=== PATIENT | female | born 1935 | race Caucasian/White ===

== ENCOUNTER 2017-03-16 07:03 | Day surgery (SDC) | payer MEDICARE, MEDICAID ==
[~2017-03-16 07:03] MED LIST: Lactated Ringers 1,000 ML IV SCH; Lidocaine 1%/Sod Bicarbonate in NS 8.4% 1 ML Syringe PRN; Sodium Chloride 0.9% 10 ML Syringe FLUSH PRN
[2017-03-16] MEDS ORDERED: fentaNYL 100 MCG/2 ML SDV ONE (07:12)
[2017-03-16] MEDS ORDERED: Propofol 200 MG/20 ML SDV ONE (07:12)
[2017-03-16] MEDS ORDERED: Lidocaine 1% 4 ML ONE (07:12)
--- NOTE | 2017-03-16 07:59 | PCM.PREANE ---
Preanesthetic Assessment - Anesthesia/Transfusion/Family Hx Anesthesia History: Prior Anesthesia Without Reaction Family History of Anesthesia Reaction: No - Review of Systems General: No Symptoms Pulmonary: No Symptoms Cardiovascular: No Symptoms Gastrointestinal: No Symptoms Neurological: No Symptoms Other: Reports: None - Physical Assessment NPO Status Date: 03/15/17 NPO Status Time: 21:00 O2 Sat by Pulse Oximetry: 95 Respiratory Rate: 16 Vital Signs: Last Vital Signs Temp 37.4 C 03/16/17 07:10 Pulse 52 L 03/16/17 07:10 Resp 16 03/16/17 07:10 BP 128/63 03/16/17 07:10 Pulse Ox 95 03/16/17 07:10 Height: 1.5 m Weight: 102.965 kg ASA Class: 3 Mental Status: Alert & Oriented x3 Dentition: Reports: Normal Dentition Thyro-Mental Finger Breadths: 2 Mouth Opening Finger Breadths: 2 ROM/Head Extension: Full Lungs: Clear to Auscultation, Normal Respiratory Effort Cardiovascular: Regular Rate, Regular Rhythm Other: Able to climb a flight of stairs. CPAP at night for sleep apnea. - Imaging/EKG Impressions: SR with RBBB 02/2016 - Allergies Allergies/Adverse Reactions: Allergies Allergy/AdvReac Type Severity Reaction Status Date / Time bacitracin Allergy Itching Verified 03/30/16 15:40 [From Triple Antibiotic] bacitracin zinc Allergy Itching Verified 03/30/16 15:40 [From Triple Antibiotic] neomycin sulfate Allergy Itching Verified 03/30/16 15:40 [From Triple Antibiotic] polymyxin B Allergy Itching Verified 03/30/16 15:40 [From Triple Antibiotic] polymyxin B sulfate Allergy Itching Verified 03/30/16 15:40 [From Triple Antibiotic] cats Allergy Respiratory Uncoded 09/18/15 14:44 Distress lanolin Allergy Itching Uncoded 09/18/15 14:44 metals Allergy Rash Uncoded 03/30/16 15:40 - Acknowledgements Anesthesia Type Planned: MAC Pt an Appropriate Candidate for the Planned Anesthesia: Yes Alternatives and Risks of Anesthesia Discussed w Pt/Guardian: Yes Pt/Guardian Understands and Agrees with Anesthesia Plan: Yes PreAnesthesia Questionnaire HEENT History: Reports: Cataract, Impaired Vision Other HEENT History: wears glasses Cardiovascular History: Reports: Heart Failure, Hypertension Respiratory History: Reports: Asthma, Sleep Apnea Gastrointestinal History: Reports: GERD, Other (See Below) Other Gastrointestinal History: lara's esophogus, umbilical hernia Genitourinary History: Reports: None 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: 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: None Musculoskeletal History: Reports: Other (See Below) Other Musculoskeletal History: crushed R ankle with hardware, broken L arm, restless leg syndrome Neurological History: Reports: Other (See Below) Other Neuro History: restless leg syndrome Psychiatric History: Reports: None Endocrine/Metabolic History: Reports: None Hematologic History: Reports: None Immunologic History: Reports: None Oncologic (Cancer) History: Reports: Basal Cell Carcinoma, Breast, Uterine Dermatologic History: Reports: Other (See Below) Other Dermatologic History: L leg plebitis, L ankle ulcer, skin lesion, leg phlebitis - Past Surgical History HEENT Surgical History: Reports: Cataract Surgery, Tonsillectomy GI Surgical History: Reports: Appendectomy, Cholecystectomy, Colonoscopy, EGD Female Surgical History: Reports: Hysterectomy Male Surgical History: Reports: None Endocrine Surgical History: Reports: None Musculoskeletal Surgical History: Reports: None Oncologic Surgical History: Reports: Mastectomy - SUBSTANCE USE Smoking Status *Q: Never Smoker Second Hand Smoke Exposure: No Days Per Week of Alcohol Use: 0 Number of Drinks Per Day: 0 Total Drinks Per Week: 0 Recreational Drug Use History: No - HOME MEDS Home Medications: Home Meds Albuterol Sulfate [Proair Hfa] 2 puff INH Q4HR PRN 09/18/15 [History] Antiox#10/Om3/DHA/EPA/Lut/Zeax [I-Caps with Lutein-[place] 3 SFG] 1 cap PO BID [History] Aspirin [Adult Low Dose Aspirin EC] 81 mg PO DAILY 09/18/15 [History] Calcium Carbonate/Vitamin D3 [Calcium 600 + Vit D 200] 1 tab PO DAILY 09/18/15 [ History] Estradiol [Estrace 0.01% Vaginal Crm] 1 gram VAG WEEKLY 09/18/15 [History] Fluticasone/Salmeterol [Advair Hfa 230-21 Mcg Inhaler] 2 puff INH BID 09/18/15 [ History] Furosemide [Lasix] 40 mg PO BID 09/18/15 [History] Lisinopril 10 mg PO DAILY 09/18/15 [History] Magnesium Hydroxide [Milk of Magnesia] 30 ml PO ASDIRECTED 09/18/15 [History] Potassium Chloride 10 meq PO DAILY 09/18/15 [History] Propylene Glycol/Peg 400 [Systane 0.3-0.4% Eye Drops] 1 drop EYEBOTH BID [History] Ranitidine HCl 150 tab PO BID 09/18/15 [History] Fluticasone Propionate [Flonase Allergy Relief] 1 spray NS BID PRN 03/30/16 [ History] Teriparatide [Forteo] 20 mcg SQ DAILY 03/30/16 [History] Cholecalciferol (Vitamin D3) [Vitamin D3] 5,000 unit PO DAILY 03/15/17 [History] - CURRENT (IN HOUSE) MEDS Current Meds: Current Medications Lactated Ringer's (Ringers, Lactated) 1,000 mls @ 125 mls/hr IV ASDIRECTED HUGO Stop: 03/16/17 23:00 Lidocaine/Sodium Bicarbonate (Buffered Lidocaine 1% In Ns 8.4%) 0.25 ml .XX ONETIME PRN PRN Reason: Prior to IV Start Stop: 03/16/17 18:00 Sodium Chloride (Saline Flush) 10 ml FLUSH ASDIRECTED PRN PRN Reason: Keep Vein Open Stop: 03/16/17 18:00 Discontinued Medications Fentanyl (Sublimaze) Confirm Administered Dose 100 mcg .ROUTE .STK-MED ONE Stop: 03/16/17 07:13 Lidocaine HCl (Xylocaine-Mpf 1%) Confirm Administered Dose 4 mls @ as directed .ROUTE .STK-MED ONE Stop: 03/16/17 07:13 Propofol (Diprivan 20 Ml) Confirm Administered Dose 200 mg .ROUTE .STK-MED ONE Stop: 03/16/17 07:13
--- NOTE | 2017-03-16 08:57 | PCM.OPNOTE ---
- General Post-Op/Procedure Note Date of Surgery/Procedure: 03/16/17 Operative Procedure(s): EGD with bx Pre Op Diagnosis: barretts esophagus Post-Op Diagnosis: Same Anesthesia Technique: MAC Primary Surgeon: Eric Cotto EBL in mLs: 0 Complications: None Condition: Good
[2017-03-16 09:25] VITALS: BP 116/60
--- NOTE | 2017-03-16 12:00 | OR ---
DATE OF OPERATION: 03/16/2017 SURGEON: Eric Cotto MD PREOPERATIVE DIAGNOSIS: History of Marcial's esophagus. POSTOPERATIVE DIAGNOSIS: History of Marcial's esophagus. OPERATION PERFORMED: Esophagogastroduodenoscopy with biopsy. ANESTHESIA: Done under IV sedation. FINDINGS: Large hiatal hernia with half the stomach above the diaphragm. GE junction was located at 30 cm, and there was mild irregularity suggesting perhaps no Marcial's or very short Marcial's esophagus. The duodenal bulb was unremarkable. Because of the coiling, the scope was unable to get beyond the duodenal bulb, into the second portion. Pyloric channel was unremarkable. Antrum, body, cardia, and fundus of the stomach were without any acute disease other than the large hiatal hernia. DESCRIPTION OF PROCEDURE: The patient was taken to the endoscopy room, connected to monitoring equipment, given IV sedation, and placed in left lateral position. Bite block was inserted. Video Olympus gastroscope was placed in the posterior oropharynx, threaded past the cricopharyngeus, down the esophagus, and into the stomach. The stomach was insufflated, and the scope passed through the pylorus to the duodenal bulb. Because of the coiling, could not advance into the second portion of the duodenum. Duodenal bulb was unremarkable as well as the pylorus. Antrum, body, and cardia of the stomach and fundus did not show any acute pathology. Biopsies of the fundus were done. The J-maneuver did show an incompetent hiatus with a large portion of the stomach, about half, above the diaphragm, and one could see the GE junction from this angle. The scope was withdrawn into the hiatal hernia pouch, which was viewed and was unremarkable. The GE junction was located at 30 cm, mild irregularity, and this area was biopsied. If there was any Marcial's, it would only be about 1 cm. The rest of the esophagus was viewed as the scope was withdrawn and was unremarkable. The patient tolerated the procedure and was sent to recovery room in a stable condition. Specimen sent to pathology in a labeled container. The patient will be followed up in clinic. ESTIMATED BLOOD LOSS: MMODAL /[id number]
== END 2017-03-16 09:31 | disposition home or self-care (01) ==
LOC: JD.SDS 07:03
PROVIDERS: ATTEND Surgery
DX: K29.50 Unspecified chronic gastritis without bleeding (principal); Z87.19 Personal history of other diseases of the digestive system; I11.0 Hypertensive heart disease with heart failure; I50.9 Heart failure, unspecified; K21.9 Gastro-esophageal reflux disease without esophagitis; J45.909 Unspecified asthma, uncomplicated; Z90.710 Acquired absence of both cervix and uterus; Z90.49 Acquired absence of other specified parts of digestive tract; Z98.890 Other specified postprocedural states; Z79.899 Other long term (current) drug therapy
CPT/HCPCS: 43239; J7120; 00740; 88305; J2704; J3010

== ENCOUNTER 2017-09-28 06:18 | Day surgery (SDC) | payer MEDICARE, MEDICAID ==
[~2017-09-28 06:18] MED LIST changes: +Lidocaine 1%/Sod Bicarbonate in NS 8.4% 1 ML Syringe IDERM PRN; -Lidocaine 1%/Sod Bicarbonate in NS 8.4% 1 ML Syringe PRN
[2017-09-28] MEDS ORDERED: fentaNYL 100 MCG/2 ML SDV ONE (06:41)
[2017-09-28] MEDS ORDERED: Propofol 200 MG/20 ML SDV ONE (06:41)
[2017-09-28] MEDS ORDERED: Lidocaine 1% 4 ML ONE (06:42)
[2017-09-28] MEDS ORDERED: Ondansetron 4 MG/2 ML SDV ONE (06:44)
--- NOTE | 2017-09-28 06:46 | PCM.PREANE ---
Preanesthetic Assessment - Procedure Proposed Procedure: A1 johanna release of right middle and little finger - Anesthesia/Transfusion/Family Hx Anesthesia History: Prior Anesthesia Without Reaction Family History of Anesthesia Reaction: No Transfusion History: Prior Transfusion Without Reaction - Review of Systems General: No Symptoms Pulmonary: Other (AKOSUA with CPAP, asthma- used inhalers this am) Cardiovascular: Other (HTN, CHF) Gastrointestinal: Other (GERD, hiatal hernia ) Neurological: No Symptoms Other: Reports: Easy Bruising - Physical Assessment NPO Status Date: 09/27/17 NPO Status Time: 21:00 Pulse: 54 O2 Sat by Pulse Oximetry: 94 Respiratory Rate: 16 Blood Pressure: 119/54 Temperature: 36.6 C Height: 1.42 m Weight: 100.698 kg ASA Class: 3 Mental Status: Alert & Oriented x3 Dentition: Reports: Normal Dentition Thyro-Mental Finger Breadths: 3 Mouth Opening Finger Breadths: 3 ROM/Head Extension: Limited/Partial Lungs: Clear to Auscultation, Normal Respiratory Effort Cardiovascular: Regular Rate, Regular Rhythm - Lab Values: Laboratory Last Values MRSA (PCR) Negative 09/20/17 15:05 - Allergies Allergies/Adverse Reactions: Allergies Allergy/AdvReac Type Severity Reaction Status Date / Time bacitracin Allergy Itching Verified 09/27/17 14:58 [From Triple Antibiotic] bacitracin zinc Allergy Itching Verified 09/27/17 14:58 [From Triple Antibiotic] cat dander Allergy Respiratory Verified 09/27/17 14:58 Distress lanolin Allergy Itching Verified 09/27/17 14:58 neomycin sulfate Allergy Itching Verified 09/27/17 14:58 [From Triple Antibiotic] polymyxin B Allergy Itching Verified 09/27/17 14:58 [From Triple Antibiotic] polymyxin B sulfate Allergy Itching Verified 09/27/17 14:58 [From Triple Antibiotic] metals Allergy Rash Uncoded 09/27/17 14:58 - Blood Blood Available: No Product(s) Available: None - Anesthesia Plan Pre-Op Medication Ordered: None - Acknowledgements Anesthesia Type Planned: MAC Pt an Appropriate Candidate for the Planned Anesthesia: Yes Alternatives and Risks of Anesthesia Discussed w Pt/Guardian: Yes Pt/Guardian Understands and Agrees with Anesthesia Plan: Yes PreAnesthesia Questionnaire HEENT History: Reports: Cataract, Impaired Vision Other HEENT History: wears glasses Cardiovascular History: Reports: Heart Failure, Hypertension Respiratory History: Reports: Asthma, Sleep Apnea Gastrointestinal History: Reports: GERD, Other (See Below) Other Gastrointestinal History: lara's esophogus, umbilical hernia, esophagitis Genitourinary History: Reports: None 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: 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: None Musculoskeletal History: Reports: Other (See Below) Other Musculoskeletal History: crushed R ankle with hardware, broken L arm, restless leg syndrome Neurological History: Reports: Other (See Below) Other Neuro History: restless leg syndrome Psychiatric History: Reports: None Endocrine/Metabolic History: Reports: None Hematologic History: Reports: None Immunologic History: Reports: None Oncologic (Cancer) History: Reports: Basal Cell Carcinoma, Breast, Uterine Dermatologic History: Reports: Other (See Below) Other Dermatologic History: L leg plebitis, L ankle ulcer, skin lesion, leg phlebitis - Past Surgical History HEENT Surgical History: Reports: Cataract Surgery, Tonsillectomy Cardiovascular Surgical History: Reports: None Respiratory Surgical History: Reports: None GI Surgical History: Reports: Appendectomy, Cholecystectomy, Colonoscopy, EGD, Hernia Repair/Other Female Surgical History: Reports: Hysterectomy Male Surgical History: Reports: None Endocrine Surgical History: Reports: None Musculoskeletal Surgical History: Reports: None Oncologic Surgical History: Reports: Mastectomy - SUBSTANCE USE Smoking Status *Q: Never Smoker Second Hand Smoke Exposure: No Days Per Week of Alcohol Use: 0 Number of Drinks Per Day: 0 Total Drinks Per Week: 0 Recreational Drug Use History: No - HOME MEDS Home Medications: Home Meds Albuterol Sulfate [Proair Hfa] 2 puff INH Q4HR PRN 09/18/15 [History] Antiox#10/Om3/DHA/EPA/Lut/Zeax [I-Caps with Lutein-[place] 3 SFG] 2 cap PO BID [History] Aspirin [Adult Low Dose Aspirin EC] 81 mg PO DAILY 09/18/15 [History] Calcium Carbonate/Vitamin D3 [Calcium 600 + Vit D 200] 1 tab PO DAILY 09/18/15 [ History] Estradiol [Estrace 0.01% Vaginal Crm] 1 gram VAG WEEKLY 09/18/15 [History] Fluticasone/Salmeterol [Advair Hfa 230-21 Mcg Inhaler] 2 puff INH BID PRN [History] Furosemide [Lasix] 40 mg PO BID 09/18/15 [History] Lisinopril 10 mg PO DAILY 09/18/15 [History] Magnesium Hydroxide [Milk of Magnesia] 30 ml PO ASDIRECTED 09/18/15 [History] Potassium Chloride 10 meq PO DAILY 09/18/15 [History] Propylene Glycol/Peg 400 [Systane 0.3-0.4% Eye Drops] 1 drop EYEBOTH BID [History] Ranitidine HCl 150 tab PO BID 09/18/15 [History] Fluticasone Propionate [Flonase Allergy Relief] 1 spray NS BID PRN 03/30/16 [ History] Teriparatide [Forteo] 20 mcg SQ DAILY 03/30/16 [History] Cholecalciferol (Vitamin D3) [Vitamin D3] 5,000 unit PO DAILY 03/15/17 [History] - CURRENT (IN HOUSE) MEDS Current Meds: Current Medications Lactated Ringer's (Ringers, Lactated) 1,000 mls @ 125 mls/hr IV ASDIRECTED HUGO Stop: 09/28/17 23:00 Lidocaine/Sodium Bicarbonate (Buffered Lidocaine 1% In Ns 8.4%) 0.25 ml IDERM ONETIME PRN PRN Reason: Prior to IV Start Stop: 09/28/17 18:00 Sodium Chloride (Saline Flush) 10 ml FLUSH ASDIRECTED PRN PRN Reason: Keep Vein Open Stop: 09/28/17 18:00 Discontinued Medications Fentanyl (Sublimaze) Confirm Administered Dose 100 mcg .ROUTE .STK-MED ONE Stop: 09/28/17 06:42 Lidocaine HCl (Xylocaine-Mpf 1%) Confirm Administered Dose 4 mls @ as directed .ROUTE .STK-MED ONE Stop: 09/28/17 06:43 Ondansetron HCl (Zofran) Confirm Administered Dose 4 mg .ROUTE .STK-MED ONE Stop: 09/28/17 06:45 Propofol (Diprivan 20 Ml) Confirm Administered Dose 200 mg .ROUTE .STK-MED ONE Stop: 09/28/17 06:42
[2017-09-28] MEDS ORDERED: Lidocaine 1% 30 ML SDV ONE (06:56)
[2017-09-28] MEDS ORDERED: Bupivacaine 0.25% 10 ML SDV ONE (06:56)
[2017-09-28] MEDS ORDERED: ceFAZolin 1 GM Vial ONE (06:59)
[2017-09-28] MEDS ORDERED: Dexamethasone 4 MG/ML 5 ML MDV ONE (07:24)
--- NOTE | 2017-09-28 07:54 | PCM48HPAN ---
Post Anesthesia Note - EVALUATION WITHIN 48HRS OF ANESTHETIC Vital Signs in Normal Range: Yes Patient Participated in Evaluation: Yes Respiratory Function Stable: Yes Airway Patent: Yes Cardiovascular Function Stable: Yes Hydration Status Stable: Yes Pain Control Satisfactory: Yes Nausea and Vomiting Control Satisfactory: Yes Mental Status Recovered: Yes Pulse Rate: 50 SaO2: 96 Resp Rate: 16 Temperature: 36.4 C Blood Pressure: 95/44
[2017-09-28 08:58] VITALS: BP 96/51
--- NOTE | 2017-10-08 22:23 | PCM.OPNOTE ---
- General Post-Op/Procedure Note Date of Surgery/Procedure: 09/28/17 Operative Procedure(s): right middle, ring and small finger a1 johanna releases Pre Op Diagnosis: right middle, ring and small finger stenosing tenosynovitis Post-Op Diagnosis: Same Anesthesia Technique: Local, MAC Primary Surgeon: Royal Torres Anesthesia Provider: Marciano Fink Supervisor Gear Repair: Magaly Gonzalez EBL in mLs: 5 Complications: None Condition: Good
--- NOTE | 2017-10-08 22:55 | OR ---
DATE OF OPERATION: 09/28/2017 SURGEON: Royal Torres MD OPERATION PERFORMED: Right middle ring and small finger A1 johanna releases. PREOPERATIVE DIAGNOSIS: Right middle ring and small finger stenosing tenosynovitis. POSTOPERATIVE DIAGNOSIS: Right middle ring and small finger stenosing tenosynovitis. ANESTHESIA: Local MAC. ANESTHESIA PROVIDER: Marciano Fink. COMPUTER TYPESETTER: Magaly Gonzalez PA-C. ESTIMATED BLOOD LOSS: Less than 5 mL. COMPLICATIONS: None. CONDITION: Stable. DESCRIPTION OF PROCEDURE: The patient was identified in the preop holding area, where proper site was marked and identified by surgeon. The patient was taken back to the operating theater, where after adequate anesthesia, the patient's right upper extremity was sterilely prepped and draped in the usual sterile fashion. OR time-out was performed. The patient received 2 g IV Ancef. At this time, right upper extremity was exsanguinated with the use of an Esmarch. Then, an Esmarch was used as a tourniquet on the forearm. At this time, 1% lidocaine without epinephrine and 0.25% Marcaine without epinephrine were used to anesthetize the incisional sites of the A1 johanna over the small ring and middle fingers. At this time, starting with a small finger incision made over the A1 johanna, blunt dissection was taken down to the A1 johanna. Ragnell retractors were used on the radial and ulnar sides to protect the neurovascular bundles. At this time, with the use of a Seneca blade, the A1 johanna was resected. It was resected further with the use of a tenotomy scissors distally and making sure was released all the way proximally making sure to stay within the A2 johanna. At this time, the tendon was brought through the wound bed and there was found to be adequate release with no tendon adhesions at this time. The same maneuvers were done again for both the ring and middle fingers again making incision, protecting the neurovascular bundles, and incising it with Seneca blade and then bringing the tendon through the wounds to make sure it was adequately released. The patient did make a full fist. There was no triggering of all 3 fingers at this time. Adequate saline was irrigated through the wounds and 4-0 nylon simple suture was used for closure of the skin. The patient had sterile soft dressing applied and sent to PACU in stable condition. MMODAL /[id number]
== END 2017-09-28 08:50 | disposition home or self-care (01) ==
LOC: JD.SDS 06:18
PROVIDERS: ATTEND Orthopaedic Surgery
DX: M65.841 Other synovitis and tenosynovitis, right hand (principal); I10 Essential (primary) hypertension; K21.0 Gastro-esophageal reflux disease with esophagitis; G47.33 Obstructive sleep apnea (adult) (pediatric); I50.32 Chronic diastolic (congestive) heart failure; J45.20 Mild intermittent asthma, uncomplicated; Z79.82 Long term (current) use of aspirin; Z79.899 Other long term (current) drug therapy; Z91.09 Other allergy status, other than to drugs and biological substances; Z88.1 Allergy status to other antibiotic agents; J30.81 Allergic rhinitis due to animal (cat) (dog) hair and dander; Z90.49 Acquired absence of other specified parts of digestive tract
CPT/HCPCS: 26055; 87641; J0690; J1100; J2405; J3010; J7120; 01810; J2001; J2704

== ENCOUNTER 2018-09-13 07:58 | Day surgery (SDC) | payer MEDICARE, OTHER ==
[~2018-09-13 07:58] MED LIST changes: +Lidocaine 1% 4 ML ONE; +Propofol 200 MG/20 ML SDV ONE; +fentaNYL 100 MCG/2 ML SDV ONE
--- NOTE | 2018-09-13 09:05 | PCM.PREANE ---
Preanesthetic Assessment - Anesthesia/Transfusion/Family Hx Anesthesia History: Prior Anesthesia Without Reaction Family History of Anesthesia Reaction: No Transfusion History: Prior Transfusion Without Reaction Intubation History: Unknown - Review of Systems Pulmonary: No Symptoms (AKOSUA-CPAP, asthma) Cardiovascular: No Symptoms (CHF, HTN), Dyspnea on Exertion Gastrointestinal: No Symptoms (GERD, Lara's esophagus), Constipation, Decreased Appetite Neurological: No Symptoms (history of motion sickness) Other: Reports: None (Right breast CANCER: no blood pressures, IV starts on right), Easy Bruising, Sinus Problem (chronic rhinitis), Neck Pain - Physical Assessment NPO Status Date: 09/12/18 NPO Status Time: 22:15 Pulse: 68 O2 Sat by Pulse Oximetry: 91 Respiratory Rate: 20 Blood Pressure: 116/69 Temperature: 36.9 C Height: 1.45 m Weight: 97 kg ASA Class: 3 Mental Status: Alert & Oriented x3 Airway Class: Mallampati = 2 Dentition: Reports: Normal Dentition, Caries Thyro-Mental Finger Breadths: 3 Mouth Opening Finger Breadths: 3 ROM/Head Extension: Limited/Partial Lungs: Clear to Auscultation, Normal Respiratory Effort Cardiovascular: Regular Rate, Regular Rhythm, No Murmurs - Lab Values: Above labs reviewed and noted and within acceptable ranges to proceed with colonoscopy. 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, RBBB, LAFB - Allergies Allergies/Adverse Reactions: Allergies Allergy/AdvReac Type Severity Reaction Status Date / Time bacitracin Allergy Itching Verified 09/13/18 08:41 [From Triple Antibiotic] bacitracin zinc Allergy Itching Verified 09/13/18 08:41 [From Triple Antibiotic] cat dander Allergy Respiratory Verified 09/13/18 08:41 Distress lanolin Allergy Itching Verified 09/13/18 08:41 neomycin sulfate Allergy Itching Verified 09/13/18 08:41 [From Triple Antibiotic] polymyxin B Allergy Itching Verified 09/13/18 08:41 [From Triple Antibiotic] polymyxin B sulfate Allergy Itching Verified 09/13/18 08:41 [From Triple Antibiotic] metals Allergy Rash Uncoded 09/13/18 08:41 - Anesthesia Plan Pre-Op Medication Ordered: None - Acknowledgements Anesthesia Type Planned: MAC Pt an Appropriate Candidate for the Planned Anesthesia: Yes Alternatives and Risks of Anesthesia Discussed w Pt/Guardian: Yes Pt/Guardian Understands and Agrees with Anesthesia Plan: Yes PreAnesthesia Questionnaire HEENT History: Reports: Cataract, Impaired Vision Other HEENT History: wears glasses Cardiovascular History: Reports: Heart Failure, Hypertension Respiratory History: Reports: Asthma, Sleep Apnea Gastrointestinal History: Reports: Colon Polyp, GERD, Other (See Below) Other Gastrointestinal History: lara's esophogus, umbilical hernia, esophagitis Genitourinary History: Reports: None 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 Musculoskeletal History: Reports: Other (See Below) Other Musculoskeletal History: crushed R ankle with hardware, broken L arm, restless leg syndrome Neurological History: Reports: Other (See Below) Other Neuro History: restless leg syndrome Psychiatric History: Reports: None Endocrine/Metabolic History: Reports: None Hematologic History: Reports: None Immunologic History: Reports: None Oncologic (Cancer) History: Reports: Basal Cell Carcinoma, Breast, Uterine Dermatologic History: Reports: Other (See Below) Other Dermatologic History: L leg plebitis, L ankle ulcer, skin lesion, leg phlebitis - Past Surgical History HEENT Surgical History: Reports: Cataract Surgery, Tonsillectomy Cardiovascular Surgical History: Reports: None Respiratory Surgical History: Reports: None GI Surgical History: Reports: Appendectomy, Cholecystectomy, Colonoscopy, EGD, Hernia Repair/Other Female Surgical History: Reports: Hysterectomy Male Surgical History: Reports: None Endocrine Surgical History: Reports: None Neurological Surgical History: Reports: None Musculoskeletal Surgical History: Reports: None Oncologic Surgical History: Reports: Mastectomy - SUBSTANCE USE Smoking Status *Q: Never Smoker Recreational Drug Use History: No - HOME MEDS Home Medications: Home Meds Albuterol Sulfate [Proair Hfa] 2 puff INH Q4HR PRN 09/18/15 [History] Antiox#10/Om3/DHA/EPA/Lut/Zeax [I-Caps with Lutein-[place] 3 SFG] 2 cap PO BID [History] Aspirin [Adult Low Dose Aspirin EC] 81 mg PO DAILY 09/18/15 [History] Calcium Carbonate/Vitamin D3 [Calcium 600 + Vit D 200] 1 tab PO DAILY 09/18/15 [ History] Estradiol [Estrace 0.01% Vaginal Crm] 1 gram VAG WEEKLY 09/18/15 [History] Fluticasone/Salmeterol [Advair Hfa 230-21 Mcg Inhaler] 2 puff INH BID PRN [History] Furosemide [Lasix] 40 mg PO BID 09/18/15 [History] Lisinopril 10 mg PO DAILY 09/18/15 [History] Magnesium Hydroxide [Milk of Magnesia] 30 ml PO ASDIRECTED 09/18/15 [History] Propylene Glycol/Peg 400 [Systane 0.3-0.4% Eye Drops] 1 drop EYEBOTH BID [History] Ranitidine HCl 150 tab PO BID 09/18/15 [History] Cholecalciferol (Vitamin D3) [Vitamin D3] 5,000 unit PO DAILY 03/15/17 [History] Fluticasone/Salmeterol [Advair 250-50] 2 puff INH BID 09/12/18 [History] Polyethylene Glycol 3350 [MiraLAX] 1 dose PO DAILY 09/12/18 [History] Potassium Chloride [Klor-Con M20] 20 meq PO DAILY 09/12/18 [History] - CURRENT (IN HOUSE) MEDS Current Meds: Current Medications Lactated Ringer's (Ringers, Lactated) 1,000 mls @ 125 mls/hr IV ASDIRECTED HUGO Stop: 09/13/18 23:00 Lidocaine/Sodium Bicarbonate (Buffered Lidocaine 1% In Ns 8.4%) 0.25 ml IDERM ONETIME PRN PRN Reason: Prior to IV Start Stop: 09/13/18 18:00 Sodium Chloride (Saline Flush) 10 ml FLUSH ASDIRECTED PRN PRN Reason: Keep Vein Open Stop: 09/13/18 18:00 Discontinued Medications Fentanyl (Sublimaze) Confirm Administered Dose 100 mcg .ROUTE .STK-MED ONE Stop: 09/13/18 07:13 Lidocaine HCl (Xylocaine-Mpf 1%) Confirm Administered Dose 4 mls @ as directed .ROUTE .STK-MED ONE Stop: 09/13/18 07:13 Propofol (Diprivan 20 Ml) Confirm Administered Dose 400 mg .ROUTE .STK-MED ONE Stop: 09/13/18 07:12
--- NOTE | 2018-09-13 10:02 | PCM48HPAN ---
Post Anesthesia Note - EVALUATION WITHIN 48HRS OF ANESTHETIC Vital Signs in Normal Range: Yes Patient Participated in Evaluation: Yes Respiratory Function Stable: Yes Airway Patent: Yes Cardiovascular Function Stable: Yes Hydration Status Stable: Yes Pain Control Satisfactory: Yes Nausea and Vomiting Control Satisfactory: Yes Mental Status Recovered: Yes
--- NOTE | 2018-09-13 10:15 | PCM.OPNOTE ---
- General Post-Op/Procedure Note Date of Surgery/Procedure: 09/13/18 Operative Procedure(s): colonoscopy to cecum polypectomy times two and biopsy of lesion Pre Op Diagnosis: rectal bleeding Post-Op Diagnosis: Same Anesthesia Technique: MAC Primary Surgeon: Eric oCtto EBL in mLs: 0 Complications: None Condition: Good
[2018-09-13 10:39] VITALS: BP 104/83
--- NOTE | 2018-09-14 07:03 | OR ---
DATE OF OPERATION: 09/13/2018 SURGEON: Eric Cotto MD PREOPERATIVE DIAGNOSIS: Rectal bleeding. POSTOPERATIVE DIAGNOSIS: Rectal bleeding. OPERATION PERFORMED: Colonoscopy to cecum with biopsy and polypectomy x2 of 2 subcentimeter polyps in the descending colon, which were completely removed and retrieved and a large smooth bodied lesion at 40 cm filling about half the lumen which looked like a leiomyoma. It was biopsied only. There was also sigmoid diverticulosis and the cause of the bleeding internal hemorrhoids. ANESTHESIA: Done under IV sedation. DESCRIPTION OF PROCEDURE: The patient was taken to the endoscopy room, placed in a supine position, connected to monitoring equipment, given IV sedation, and placed in the left lateral position. Perianal area was inspected and was unremarkable except for vitiligo around the perianal area. Rectal exam showed good sphincter tone. A video Olympus colonoscope was then introduced into the rectum and threaded up without problem to the cecum, where the cecal anatomy was clearly seen. Prep was excellent. [place] Cleansing Score grade A. The scope was slowly withdrawn showing the cecum, ascending colon, transverse colon, descending colon, sigmoid colon, and rectum. Retroflexed view was done. The polyps in the upper part of the descending colon were identified, lassoed with cautery snare, completely removed and retrieved, and sent to pathology in a separate labeled container. The larger mass smooth walled, but the mucosa appeared normal with jutting into the bowel wall for about half the lumen was identified and the surface was biopsied only. Sigmoid diverticulosis was noted. Then, in the rectum, retroflexed view demonstrated hemorrhoids. The patient tolerated the procedure and sent to recovery room in a stable condition. Specimen sent to pathology in a labeled container. The patient will be followed up in the clinic. ESTIMATED BLOOD LOSS: MMODAL /[id number]
== END 2018-09-13 11:00 | disposition home or self-care (01) ==
LOC: JD.SDS 07:58
PROVIDERS: ATTEND Surgery
DX: K64.8 Other hemorrhoids (principal); D12.4 Benign neoplasm of descending colon; K57.30 Diverticulosis of large intestine without perforation or abscess without bleeding; K59.00 Constipation, unspecified; K21.9 Gastro-esophageal reflux disease without esophagitis; I11.0 Hypertensive heart disease with heart failure; I50.9 Heart failure, unspecified; J45.909 Unspecified asthma, uncomplicated; G47.33 Obstructive sleep apnea (adult) (pediatric); Z88.1 Allergy status to other antibiotic agents; Z88.8 Allergy status to other drugs, medicaments and biological substances; Z91.09 Other allergy status, other than to drugs and biological substances; Z99.89 Dependence on other enabling machines and devices; Z86.010 Personal history of colon polyps; Z79.51 Long term (current) use of inhaled steroids; Z79.82 Long term (current) use of aspirin; Z79.899 Other long term (current) drug therapy
CPT/HCPCS: 45380; 45385; J2001; J2704; J3010; J7120; 00811

== ENCOUNTER 2019-03-18 07:59 | Inpatient (IN) | payer MEDICARE, OTHER ==
[~2019-03-18 07:59] MED LIST changes: -Lidocaine 1% 4 ML ONE; -Propofol 200 MG/20 ML SDV ONE; +Ropivacaine 0.5% 5 MG/ML 30 ML SDV ONE; -fentaNYL 100 MCG/2 ML SDV ONE
[2019-03-18] MEDS ORDERED: Lidocaine 1% 0 ML ONE (08:10)
[2019-03-18] MEDS ORDERED: fentaNYL 100 MCG/2 ML SDV ONE (08:11)
[2019-03-18] MEDS ORDERED: Midazolam 1 MG/ML 2 ML SDV ONE (08:11)
[2019-03-18] MEDS ORDERED: Propofol 200 MG/20 ML SDV ONE ×2 (08:11→10:49)
[2019-03-18] MEDS ORDERED: Bupivacaine 0.75% 30 ML SDV ONE (08:15)
--- NOTE | 2019-03-18 08:25 | PCM.PREANE ---
Preanesthetic Assessment - Procedure Proposed Procedure: left total knee replacement - Anesthesia/Transfusion/Family Hx Anesthesia History: Prior Anesthesia Without Reaction Family History of Anesthesia Reaction: No Transfusion History: Prior Transfusion Without Reaction Intubation History: Unknown - Review of Systems General: No Symptoms Pulmonary: Cough (to get phlegm out of throat), Other (wears cpap) Cardiovascular: No Symptoms Gastrointestinal: No Symptoms Neurological: No Symptoms, Difficulty Walking (knee pain) Other: Reports: Easy Bruising - Physical Assessment NPO Status Date: 03/17/19 NPO Status Time: 21:00 Vital Signs: 123/55, 98.1, 63, 93% Height: 4 ft 11 in Weight: 94.3 kg ASA Class: 3 Mental Status: Alert & Oriented x3 Dentition: Reports: Missing Tooth/Teeth Thyro-Mental Finger Breadths: 3 Mouth Opening Finger Breadths: 3 ROM/Head Extension: Full Lungs: Clear to Auscultation, Normal Respiratory Effort Cardiovascular: Regular Rate, Regular Rhythm - Lab Values: Laboratory Last Values MRSA (PCR) Negative 02/26/19 15:01 - Allergies Allergies/Adverse Reactions: Allergies Allergy/AdvReac Type Severity Reaction Status Date / Time bacitracin Allergy Itching Verified 03/14/19 13:42 [From Triple Antibiotic] bacitracin zinc Allergy Itching Verified 03/14/19 13:42 [From Triple Antibiotic] cat dander Allergy Respiratory Verified 03/14/19 13:42 Distress lanolin Allergy Itching Verified 03/14/19 13:42 neomycin sulfate Allergy Itching Verified 03/14/19 13:42 [From Triple Antibiotic] polymyxin B Allergy Itching Verified 03/14/19 13:42 [From Triple Antibiotic] polymyxin B sulfate Allergy Itching Verified 03/14/19 13:42 [From Triple Antibiotic] metals Allergy Rash Uncoded 03/14/19 13:42 - Blood Blood Available: No - Acknowledgements Anesthesia Type Planned: Spinal Pt an Appropriate Candidate for the Planned Anesthesia: Yes Alternatives and Risks of Anesthesia Discussed w Pt/Guardian: Yes Pt/Guardian Understands and Agrees with Anesthesia Plan: Yes PreAnesthesia Questionnaire HEENT History: Reports: Cataract, Impaired Vision Other HEENT History: wears glasses Cardiovascular History: Reports: Heart Failure, Hypertension, Other (See Below) Other Cardiovascular History: precordial pain, negative stress test in 02/2019 Respiratory History: Reports: Asthma, Sleep Apnea Gastrointestinal History: Reports: Colon Polyp, GERD, Other (See Below) Other Gastrointestinal History: lara's esophogus, umbilical hernia, esophagitis Genitourinary History: Reports: None 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 Musculoskeletal History: Reports: Other (See Below) Other Musculoskeletal History: crushed R ankle with hardware, broken L arm, restless leg syndrome Neurological History: Reports: None, Other (See Below) Other Neuro History: restless leg syndrome Psychiatric History: Reports: None Endocrine/Metabolic History: Reports: Obesity/BMI 30+ Hematologic History: Reports: None Immunologic History: Reports: None Oncologic (Cancer) History: Reports: Basal Cell Carcinoma, Breast, Uterine Dermatologic History: Reports: Other (See Below) Other Dermatologic History: L leg plebitis, L ankle ulcer, skin lesion, leg phlebitis - Past Surgical History HEENT Surgical History: Reports: Cataract Surgery, Tonsillectomy Cardiovascular Surgical History: Reports: None Respiratory Surgical History: Reports: None GI Surgical History: Reports: Appendectomy, Cholecystectomy, Colonoscopy, EGD, Hernia Repair/Other Female Surgical History: Reports: Hysterectomy Male Surgical History: Reports: None Endocrine Surgical History: Reports: None Neurological Surgical History: Reports: None Musculoskeletal Surgical History: Reports: Carpal Tunnel, Other (See Below) ( ankle) Oncologic Surgical History: Reports: Mastectomy - History Comment History Comment: has some redness back of left lower leg. Dr. Torres is aware and wishes to proceed. - SUBSTANCE USE Smoking Status *Q: Never Smoker Tobacco Use Within Last Twelve Months: No Second Hand Smoke Exposure: No Days Per Week of Alcohol Use: 0 Recreational Drug Use History: No - HOME MEDS Home Medications: Home Meds Albuterol Sulfate [Proair Hfa] 2 puff INH Q4HR PRN 09/18/15 [History] Antiox#10/Om3/DHA/EPA/Lut/Zeax [I-Caps with Lutein-[place] 3 SFG] 2 cap PO BID [History] Aspirin [Adult Low Dose Aspirin EC] 81 mg PO DAILY 09/18/15 [History] Calcium Carbonate/Vitamin D3 [Calcium 600 + Vit D 200] 1 tab PO DAILY 09/18/15 [ History] Estradiol [Estrace 0.01% Vaginal Crm] 1 gram VAG WEEKLY 09/18/15 [History] Furosemide [Lasix] 40 mg PO BID 09/18/15 [History] Lisinopril 10 mg PO DAILY 09/18/15 [History] Magnesium Hydroxide [Milk of Magnesia] 30 ml PO ASDIRECTED 09/18/15 [History] Propylene Glycol/Peg 400 [Systane 0.3-0.4% Eye Drops] 1 drop EYEBOTH BID [History] Ranitidine HCl 150 tab PO BID 09/18/15 [History] Cholecalciferol (Vitamin D3) [Vitamin D3] 5,000 unit PO DAILY 03/15/17 [History] Fluticasone/Salmeterol [Advair 250-50] 2 puff INH BID 09/12/18 [History] Polyethylene Glycol 3350 [MiraLAX] 1 dose PO DAILY 09/12/18 [History] Potassium Chloride [Klor-Con M20] 20 meq PO DAILY 09/12/18 [History] Clindamycin Phosphate [Cleocin] 1 dose TOP BID 03/14/19 [History] Fluticasone Propionate [Flonase] 1 dose NASBOTH DAILY 03/14/19 [History] Ketoconazole [Nizoral 2% Shampoo] 1 dose TOP Q72H 03/14/19 [History] - CURRENT (IN HOUSE) MEDS Current Meds: Current Medications Bisacodyl (Dulcolax) 5 mg PO DAILY PRN PRN Reason: Constipation Morphine Sulfate 8 mg/Epinephrine HCl 0.3 mg/Cefuroxime Sodium 750 mg/Ketorolac Tromethamine 30 mg/Sodium Chloride 27.9 ml 0 mg .XX ONETIME ONE Stop: 03/18/19 10:01 Cyclobenzaprine HCl (Flexeril) 10 mg PO BID PRN PRN Reason: Spasms Docusate Sodium (Colace) 100 mg PO BID HUGO Famotidine (Pepcid) 20 mg PO Q12H HUGO Lactated Ringer's (Ringers, Lactated) 1,000 mls @ 125 mls/hr IV ASDIRECTED HUGO Stop: 03/18/19 23:00 Cefazolin Sodium/Dextrose 2 gm (/ Premix) 50 mls @ 100 mls/hr IV Q8H HUGO Stop: 03/18/19 23:44 Ketorolac Tromethamine (Toradol) 15 mg IVPUSH Q6H PRN PRN Reason: Pain Lidocaine/Sodium Bicarbonate (Buffered Lidocaine 1% In Ns 8.4%) 0.25 ml IDERM ONETIME PRN PRN Reason: Prior to IV Start Stop: 03/18/19 18:00 Magnesium Hydroxide (Milk Of Magnesia) 30 ml PO BID PRN PRN Reason: Constipation Morphine Sulfate (Morphine) 2 mg IVPUSH Q2H PRN PRN Reason: Breakthrough Pain Naloxone HCl (Narcan) 0.1 mg IVPUSH Q5M PRN PRN Reason: Oversedation Ondansetron HCl (Zofran) 4 mg IVPUSH Q6H PRN PRN Reason: Nausea/Vomiting Oxycodone/Acetaminophen (Percocet 325-5 Mg) 1 - 2 tab PO Q4H PRN PRN Reason: Pain Rivaroxaban (Xarelto) 10 mg PO DAILY HUGO Senna (Senna) 8.6 mg PO BID PRN PRN Reason: Constipation Sodium Chloride (Saline Flush) 10 ml FLUSH ASDIRECTED PRN PRN Reason: Keep Vein Open Stop: 03/18/19 18:00 Discontinued Medications Bupivacaine HCl (Sensorcaine-Mpf 0.75%) Confirm Administered Dose 30 ml .ROUTE .STK-MED ONE Stop: 03/18/19 08:16 Cefazolin Sodium (Ancef) Confirm Administered Dose 2 gm .ROUTE .STK-MED ONE Stop: 03/18/19 08:13 Fentanyl (Sublimaze) Confirm Administered Dose 100 mcg .ROUTE .STK-MED ONE Stop: 03/18/19 08:12 Lidocaine HCl (Xylocaine-Mpf 1%) Confirm Administered Dose 4 mls @ as directed .ROUTE .STK-MED ONE Stop: 03/18/19 08:11 Lidocaine HCl (Xylocaine-Mpf 1%) Confirm Administered Dose 5 mls @ as directed .ROUTE .STK-MED ONE Stop: 03/18/19 08:15 Midazolam HCl (Versed 1 Mg/Ml) Confirm Administered Dose 2 mg .ROUTE .STK-MED ONE Stop: 03/18/19 08:12 Propofol (Diprivan 20 Ml) Confirm Administered Dose 400 mg .ROUTE .STK-MED ONE Stop: 03/18/19 08:12 Ropivacaine (Naropin 0.5%) Confirm Administered Dose 30 ml .ROUTE .STK-MED ONE Stop: 03/18/19 07:27
[2019-03-18] MEDS ORDERED: ceFAZolin 1 GM Vial ONE (08:54)
--- NOTE | 2019-03-18 09:09 | PCM.CONS ---
H&P History of Present Illness - General Date of Service: 03/18/19 Admit Problem/Dx: Admission Diagnosis/Problem Admission Diagnosis/Problem Osteoarthritis of knee Source of Information: Patient, Old Records, Provider, RN, RN Notes Reviewed History Limitations: Reports: No Limitations - History of Present Illness Initial Comments - Free Text/Narative: Franny Busch is an 83 yo female patient of Dr. Torres who is post-operative day 0 of left TKA. Hospital medicine was consulted for post-operative medical care of the following listed medical conditions. At this time she is resting comfortably in bed. Pain is controlled. She denies any chest pain, shortness of breath, palpitations, nausea, or vomiting. She carries a history of: HTN, GERD, CHF, Asthma, Precordial pain, Chronic LLE ulcer, Uterine cancer, LLE phlebitis, AKOSUA with CPAP use, RLS, Lara's esophagus, Breast cancer, Umbilical hernia, Obesity. She was never a smoker. She is a full code. Her primary care provider is Dr. Stein. Left Knee Pain Score (Numeric/FACES): 0 - Related Data Allergies/Adverse Reactions: Allergies Allergy/AdvReac Type Severity Reaction Status Date / Time bacitracin Allergy Itching Verified 03/14/19 13:42 [From Triple Antibiotic] bacitracin zinc Allergy Itching Verified 03/14/19 13:42 [From Triple Antibiotic] cat dander Allergy Respiratory Verified 03/14/19 13:42 Distress lanolin Allergy Itching Verified 03/14/19 13:42 neomycin sulfate Allergy Itching Verified 03/14/19 13:42 [From Triple Antibiotic] polymyxin B Allergy Itching Verified 03/14/19 13:42 [From Triple Antibiotic] polymyxin B sulfate Allergy Itching Verified 03/14/19 13:42 [From Triple Antibiotic] metals Allergy Rash Uncoded 03/14/19 13:42 Home Medications: Home Meds Albuterol Sulfate [Proair Hfa] 2 puff INH Q4HR PRN 09/18/15 [History] Antiox#10/Om3/DHA/EPA/Lut/Zeax [I-Caps with Lutein-[place] 3 SFG] 2 cap PO BID [History] Aspirin [Adult Low Dose Aspirin EC] 81 mg PO DAILY 09/18/15 [History] Calcium Carbonate/Vitamin D3 [Calcium 600 + Vit D 200] 1 tab PO DAILY 09/18/15 [ History] Estradiol [Estrace 0.01% Vaginal Crm] 1 gram VAG WEEKLY 09/18/15 [History] Furosemide [Lasix] 40 mg PO BID 09/18/15 [History] Lisinopril 10 mg PO DAILY 09/18/15 [History] Magnesium Hydroxide [Milk of Magnesia] 30 ml PO ASDIRECTED 09/18/15 [History] Propylene Glycol/Peg 400 [Systane 0.3-0.4% Eye Drops] 1 drop EYEBOTH BID [History] Ranitidine HCl 150 tab PO BID 09/18/15 [History] Cholecalciferol (Vitamin D3) [Vitamin D3] 5,000 unit PO DAILY 03/15/17 [History] Fluticasone/Salmeterol [Advair 250-50] 2 puff INH BID 09/12/18 [History] Polyethylene Glycol 3350 [MiraLAX] 1 dose PO DAILY 09/12/18 [History] Potassium Chloride [Klor-Con M20] 20 meq PO DAILY 09/12/18 [History] Clindamycin Phosphate [Cleocin] 1 dose TOP BID 03/14/19 [History] Fluticasone Propionate [Flonase] 1 dose NASBOTH DAILY 03/14/19 [History] Ketoconazole [Nizoral 2% Shampoo] 1 dose TOP Q72H 03/14/19 [History] Past Medical History HEENT History: Reports: Cataract, Impaired Vision Other HEENT History: wears glasses Cardiovascular History: Reports: Heart Failure, Hypertension, Other (See Below) Other Cardiovascular History: precordial pain, negative stress test in 02/2019 Respiratory History: Reports: Asthma, Sleep Apnea Gastrointestinal History: Reports: Colon Polyp, GERD, Other (See Below) Other Gastrointestinal History: lara's esophogus, umbilical hernia, esophagitis Genitourinary History: Reports: None 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 Musculoskeletal History: Reports: Other (See Below) Other Musculoskeletal History: crushed R ankle with hardware, broken L arm, restless leg syndrome Neurological History: Reports: None, Other (See Below) Other Neuro History: restless leg syndrome Psychiatric History: Reports: None Endocrine/Metabolic History: Reports: Obesity/BMI 30+ Hematologic History: Reports: None Immunologic History: Reports: None Oncologic (Cancer) History: Reports: Basal Cell Carcinoma, Breast, Uterine Dermatologic History: Reports: Other (See Below) Other Dermatologic History: L leg plebitis, L ankle ulcer, skin lesion, leg phlebitis - Past Surgical History HEENT Surgical History: Reports: Cataract Surgery, Tonsillectomy Cardiovascular Surgical History: Reports: None Respiratory Surgical History: Reports: None GI Surgical History: Reports: Appendectomy, Cholecystectomy, Colonoscopy, EGD, Hernia Repair/Other Female Surgical History: Reports: Hysterectomy Male Surgical History: Reports: None Endocrine Surgical History: Reports: None Neurological Surgical History: Reports: None Musculoskeletal Surgical History: Reports: Carpal Tunnel, Other (See Below) ( ankle) Oncologic Surgical History: Reports: Mastectomy - History Comment History Comment: has some redness back of left lower leg. Dr. Torres is aware and wishes to proceed. Social & Family History - Tobacco Use Smoking Status *Q: Never Smoker Second Hand Smoke Exposure: No - Caffeine Use Caffeine Use: Reports: Coffee - Alcohol Use Days Per Week of Alcohol Use: 0 - Recreational Drug Use Recreational Drug Use: No Drug Use in Last 12 Months: No H&P Review of Systems - Review of Systems: Review Of Systems: See Below General: Reports: No Symptoms. Denies: Fever, Chills HEENT: Reports: No Symptoms. Denies: Headaches, Sore Throat Pulmonary: Reports: No Symptoms. Denies: Shortness of Breath, Wheezing, Cough, Sputum Cardiovascular: Reports: No Symptoms. Denies: Chest Pain, Palpitations, Dyspnea on Exertion Gastrointestinal: Reports: No Symptoms. Denies: Abdominal Pain, Constipation, Diarrhea, Nausea, Vomiting Genitourinary: Reports: No Symptoms. Denies: Pain Musculoskeletal: Reports: Leg Pain Skin: Reports: No Symptoms. Denies: Cyanosis Psychiatric: Reports: No Symptoms. Denies: Confusion Neurological: Reports: No Symptoms Hematologic/Lymphatic: Reports: No Symptoms Immunologic: Reports: No Symptoms Exam - Exam Exam: See Below - Vital Signs Vital Signs: Last Vital Signs Temp 98.1 F 03/18/19 08:15 Pulse 63 03/18/19 08:15 Resp 16 03/18/19 08:15 BP 123/55 L 03/18/19 08:15 Pulse Ox 94 L 03/18/19 08:15 Weight: 207 lb 14.334 oz - Exam Quality Assessment: DVT Prophylaxis General: Alert, Oriented, Cooperative HEENT: Conjunctiva Clear, EACs Clear, EOMI, Hearing Intact, Mucosa Moist & [place] , Posterior Pharynx Clear, TMs Clear, PERRLA Neck: Supple, Trachea Midline Lungs: Clear to Auscultation, Normal Respiratory Effort Cardiovascular: Regular Rhythm, Bradycardia (58) GI/Abdominal Exam: Normal Bowel Sounds, Soft, Non-Tender, No Organomegaly, No Distention (Female) Exam: Deferred Rectal (Female) Exam: Deferred Back Exam: Normal Inspection, Full Range of Motion, Other (Kyphosis ) Extremities: No Pedal Edema, Normal Capillary Refill, Leg Pain, Limited Range of Motion, Other (Bandage in place on left leg. Bandage is dry and intact. Cooling pack in place. ) Peripheral Pulses: 2+: Radial (L), Radial (R), Dorsalis Pedis (L), Dorsalis Pedis (R) Skin: Warm, Dry, Intact Neurological: Cranial Nerves Intact (Grossly ) Neuro Extensive - Mental Status: Alert, Oriented x3, Normal Mood/Affect, Normal Cognition Consult PN Assessment/Plan POD#: 0 Procedures: Procedures APPLY FOREARM SPLINT (09/17/15) ASSAY OF MAGNESIUM (09/17/15) ASSAY OF TROPONIN QUANT (09/17/15) ASSAY THYROID STIM HORMONE (09/17/15) CARDIOVASCULAR STRESS TEST (02/19/19) CARPAL TUNNEL SURGERY (03/31/16) COLONOSCOPY AND BIOPSY (09/13/18) COLONOSCOPY W/LESION REMOVAL (09/13/18) COMPLETE CBC AUTOMATED (09/17/15) COMPREHEN METABOLIC PANEL (09/17/15) CREATINE MB FRACTION (09/17/15) DXA BONE DENSITY AXIAL (11/06/17) EGD BIOPSY SINGLE/MULTIPLE (03/16/17) FLUOROSCOPY <1 HR PHYS/QHP (09/18/15) HT MUSCLE IMAGE SPECT MULT (02/19/19) INCISE FINGER TENDON SHEATH (09/28/17) MEASURE BLOOD OXYGEN LEVEL (06/29/15) METABOLIC PANEL TOTAL CA (10/18/16) MR-STAPH DNA AMP PROBE (09/28/17) MRI ORBT/FAC/NCK W/O &W/DYE (03/01/18) OFFICE/OUTPATIENT VISIT NEW (09/17/15) PROTHROMBIN TIME (09/17/15) ROUTINE VENIPUNCTURE (10/18/16) TISSUE EXAM BY PATHOLOGIST (10/08/14) TREAT FRACTURE RADIUS/ULNA (09/18/15) X-RAY EXAM OF FOREARM (09/17/15) X-RAY EXAM OF WRIST (09/17/15) (1) S/P total knee arthroplasty SNOMED Code(s): 7860450463089, 042593411, 1906554582219 Code(s): Z96.659 - PRESENCE OF UNSPECIFIED ARTIFICIAL KNEE JOINT Priority: High Current Visit: Yes Qualifiers: Laterality: left Qualified Code(s): Z96.652 - Presence of left artificial knee joint (2) Osteoarthritis SNOMED Code(s): 589668489 Code(s): M19.90 - UNSPECIFIED OSTEOARTHRITIS, UNSPECIFIED SITE Priority: High Current Visit: Yes Qualifiers: Osteoarthritis location: knee Osteoarthritis type: primary Laterality: left Qualified Code(s): M17.12 - Unilateral primary osteoarthritis, left knee (3) HTN (hypertension) SNOMED Code(s): 80979045 Code(s): I10 - ESSENTIAL (PRIMARY) HYPERTENSION Priority: Medium Current Visit: No Qualifiers: Hypertension type: unspecified Qualified Code(s): I10 - Essential (primary ) hypertension (4) GERD (gastroesophageal reflux disease) SNOMED Code(s): 970061642 Code(s): K21.9 - GASTRO-ESOPHAGEAL REFLUX DISEASE WITHOUT ESOPHAGITIS Priority: Low Current Visit: No Qualifiers: Esophagitis presence: with esophagitis Qualified Code(s): K21.0 - Gastro- esophageal reflux disease with esophagitis (5) CHF (congestive heart failure) SNOMED Code(s): 73184528 Code(s): I50.9 - HEART FAILURE, UNSPECIFIED Priority: Medium Current Visit: No Qualifiers: Heart failure type: unspecified Heart failure chronicity: unspecified Qualified Code(s): I50.9 - Heart failure, unspecified (6) Asthma SNOMED Code(s): 224689608 Code(s): J45.909 - UNSPECIFIED ASTHMA, UNCOMPLICATED Priority: Low Current Visit: No Qualifiers: Asthma severity: unspecified severity Asthma persistence: unspecified Asthma complication type: unspecified Qualified Code(s): J45.909 - Unspecified asthma, uncomplicated (7) Precordial pain SNOMED Code(s): 54526569 Code(s): R07.2 - PRECORDIAL PAIN Priority: Low Current Visit: No (8) Chronic ulcer of left lower extremity SNOMED Code(s): 03877632 Code(s): L97.929 - NON-PRS CHRONIC ULC UNSP PRT OF L LOW LEG W UNSP SEVERITY Priority: Medium Current Visit: No Qualifiers: Non-pressure ulcer stage: unspecified non-pressure ulcer stage Qualified Code(s): L97.929 - Non-pressure chronic ulcer of unspecified part of left lower leg with unspecified severity (9) History of uterine cancer SNOMED Code(s): 607097801 Code(s): Z85.42 - PERSONAL HISTORY OF MALIGNANT NEOPLASM OF OTH PRT UTERUS Priority: Low Current Visit: No (10) AKOSUA (obstructive sleep apnea) SNOMED Code(s): 64247508 Code(s): G47.33 - OBSTRUCTIVE SLEEP APNEA (ADULT) (PEDIATRIC) Priority: Medium Current Visit: No (11) RLS (restless legs syndrome) SNOMED Code(s): 49324273 Code(s): G25.81 - RESTLESS LEGS SYNDROME Priority: Low Current Visit: No (12) Lara's esophagus SNOMED Code(s): 100986696 Code(s): K22.70 - LARA'S ESOPHAGUS WITHOUT DYSPLASIA Priority: Low Current Visit: No Qualifiers: Lara's esophagus type: with dysplasia of unspecified degree Qualified Code(s): K22.719 - Lara's esophagus with dysplasia, unspecified; K22.71 - Lara's esophagus with dysplasia (13) Umbilical hernia SNOMED Code(s): 846994826 Code(s): K42.9 - UMBILICAL HERNIA WITHOUT OBSTRUCTION OR GANGRENE Priority : Low Current Visit: No Qualifiers: Obstruction and gangrene presence: without obstruction or gangrene Qualified Code(s): K42.9 - Umbilical hernia without obstruction or gangrene (14) History of breast cancer SNOMED Code(s): 110048513 Code(s): Z85.3 - PERSONAL HISTORY OF MALIGNANT NEOPLASM OF BREAST Priority : Low Current Visit: No Problem List Initiated/Reviewed/Updated: Yes Plan: I/P: Acute: S/P left total knee arthroplasty - post-operative day 0 -DVT prophylaxis and pain management per primary care team -PT/OT -IS/RT -Monitor oxygen saturation -Titrate oxygen as needed -Home medications reviewed -Vital signs stable -Monitor labs -Pre-operative Hgb was 14.3 -Pre-operative GFR was 69 -Pre-operative 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 Her PCP is Dr. Stein Thank you for allowing us to participate in the care of this patient!! Requesting Provider: Dr. Torres Date Consult Requested: 03/18/19 Patient History Reviewed: Yes Admission H&P Reviewed: Yes Time Spent (in minutes): 40
[2019-03-18] MEDS ORDERED: ePHEDrine/Normal Saline 25 MG/5 ML Syringe ONE (09:41)
[2019-03-18] MEDS ORDERED: Lactated Ringers 1,000 ML ONE (09:52)
[2019-03-18] MEDS ORDERED: fentaNYL 100 MCG/2 ML SDV IVPUSH PRN (09:55)
[2019-03-18] MEDS ORDERED: Ondansetron 4 MG/2 ML SDV IVPUSH PRN ×2 (09:55→11:00)
[2019-03-18] MEDS: Bupivacaine 0.25% 10 ML SDV ONE ×2 (10:22→11:03)
[2019-03-18] MEDS: ceFAZolin 1 GM Vial ONE ×2 (10:23→11:00)
[2019-03-18] MEDS: Iodine/Sodium Iodide 2% Tincture 30 ML Bottle ONE ×2 (10:23→10:58)
[2019-03-18] MEDS: Morphine 8 MG, EPINEPHrine 0.3 MG, Cefuroxime 750 MG, Ketorolac 30 MG, Sodium Chloride ... ONE ×10 (10:24→11:05)
[2019-03-18] MEDS: Vancomycin 1 GM SDV ONE ×2 (10:32→11:10)
[2019-03-18] MEDS ORDERED: Bisacodyl 5 MG Tab PO PRN (11:00)
[2019-03-18] MEDS ORDERED: Morphine 2 MG/ML Syringe IVPUSH PRN (11:00)
[2019-03-18] MEDS ORDERED: Sennosides 8.6 MG Tab PO PRN (11:00)
[2019-03-18] MEDS ORDERED: Acetaminophen/oxyCODONE 325-5 MG Tab PO PRN (11:00)
[2019-03-18] MEDS ORDERED: Magnesium Hydroxide 400 MG/5 ML Susp 30 ML Cup PO PRN (11:00)
[2019-03-18] MEDS ORDERED: Naloxone 0.4 MG/ML SDV IVPUSH PRN (11:00)
[2019-03-18] MEDS ORDERED: Cyclobenzaprine 10 MG Tab PO PRN (11:00)
--- NOTE | 2019-03-18 12:13 | PCM.POSTAN ---
POST ANESTHESIA ASSESSMENT - MENTAL STATUS Mental Status: Alert, Oriented - VITAL SIGNS Vital Signs: Last Vital Signs Temp 97.6 03/18/19 1203 Pulse 58 03/18/19 1203 Resp 19 03/18/19 1203 BP 106/60 03/18/19 1203 Pulse Ox 92 03/18/19 1203 - RESPIRATORY Respiratory Status: Respiratory Rate WNL, Airway Patent, O2 Saturation Stable, Supplemental Oxygen - CARDIOVASCULAR CV Status: Pulse Rate WNL, Blood Pressure Stable - GASTROINTESTINAL GI Status: No Symptoms - PAIN Pain Score: 0 - POST OP HYDRATION Hydration Status: Adequate & Stable
--- NOTE | 2019-03-18 12:42 | PCM.SN ---
- Free Text/Narrative Note: Left selective femoral nerve block at the adductor canal for post-procedure pain control under US guidance requested by Dr. Torres. Date:03/18/19 Time Out: 1220 Start: 1222 End: 1228 Chart reviewed. Consent signed. Questions answered. Appropriate monitors applied. Time out performed. Left mid-shaft femur identified with ultrasound, scanning medially of femur, the femoral artery in the adductor canal visualized , and the femoral nerve located laterally to the artery. The skin was prepped lateral to the ultrasound probe with chlorahexadine times two. The 21ga 4 insulated block needle was inserted under direct ultrasound guidance into the adductor canal. 25mL of 0.5% ropivacaine with 1:200,000 epinephrine was injected circumferentially around the nerve with intermittent negative aspiration noted. Patient tolerated the procedure well. Sterile technique noted along with sterile gloves, mask, and sterile probe cover. See picture on progress note and vital signs on nurses notes. Block completed in PACU. Ewelina Cohn CRNA
--- NOTE | 2019-03-18 13:16 | CR ---
Left knee: AP and lateral views of the left knee were obtained. Comparison: No prior knee exam is available. Knee prosthesis is seen. Components are aligned. Soft tissue air is noted from the surgical procedure. Bony structures are osteopenic. No acute bony abnormality is appreciated. Impression: 1. Satisfactory postop radiographic appearance of recently placed left knee prosthesis. Diagnostic code #2
[2019-03-18] MEDS ORDERED: ALBUTEROL INH PRN (13:56)
[2019-03-18] MEDS ORDERED: Magnesium Hydroxide 400 MG/5 ML Susp 30 ML Cup PO SCH (14:00)
[2019-03-18] MEDS: ceFAZolin 2 GM in Premix Bag 1 BAG IV SCH (17:53)
[2019-03-18] MEDS: Multivitamins with Minerals/Folic Acid/Lutein/Zeaxanth Tab PO SCH (20:39)
[2019-03-18] MEDS: Carboxymethylcellulose Sodium 1% Ophth Gel 15 ML Bottle EYEBOTH SCH (20:39)
[2019-03-18] MEDS: Docusate Sodium 100 MG Cap PO SCH (20:39)
[2019-03-18] MEDS: Famotidine 20 MG Tab PO SCH (20:39)
[2019-03-18] MEDS: CLINDAMYCIN PHOSPHATE TOP SCH (20:40)
[2019-03-18] MEDS: FLUTICASONE INH SCH (20:43)
[2019-03-18] MEDS: SALMETEROL INH SCH (20:43)
[2019-03-18] MEDS ORDERED: RANITIDINE HCL PO SCH (21:00)
[2019-03-18] MEDS: Ketorolac 15 MG/ML SDV IVPUSH PRN (21:27)
[2019-03-19] MEDS: ceFAZolin 2 GM in Premix Bag 1 BAG IV SCH ×2 (01:18→09:18)
[2019-03-19] MEDS: Ketorolac 15 MG/ML SDV IVPUSH PRN (06:15)
--- NOTE | 2019-03-19 06:25 | PCM.CONSN ---
- General Info Date of Service: 03/19/19 Admission Dx/Problem (Free Text): Admission Diagnosis/Problem Admission Diagnosis/Problem Osteoarthritis of knee Functional Status: Reports: Pain Controlled, Tolerating Diet, Ambulating, Urinating, Incentive Spirometry. Denies: New Symptoms - Review of Systems General: Reports: No Symptoms. Denies: Fever, Chills HEENT: Reports: No Symptoms. Denies: Headaches, Sore Throat Pulmonary: Reports: No Symptoms. Denies: Shortness of Breath, Cough, Wheezing Cardiovascular: Reports: No Symptoms. Denies: Chest Pain, Palpitations Gastrointestinal: Reports: No Symptoms. Denies: Abdominal Pain, Constipation, Diarrhea, Nausea, Vomiting Genitourinary: Reports: No Symptoms. Denies: Pain Musculoskeletal: Reports: Leg Pain Skin: Reports: No Symptoms. Denies: Cyanosis Neurological: Reports: No Symptoms. Denies: Confusion Psychiatric: Reports: No Symptoms - Patient Data Vitals - Most Recent: Last Vital Signs Temp 98.1 F 03/19/19 04:33 Pulse 56 L 03/19/19 04:33 Resp 20 03/19/19 04:33 BP 123/100 H 03/19/19 04:33 Pulse Ox 92 L 03/19/19 04:33 Weight - Most Recent: 215 lb 11.2 oz I&O - Last 24 Hours: Intake & Output 03/18/19 03/18/19 03/19/19 14:59 22:59 06:59 Intake Total 800 Output Total 400 Balance 400 Lab Results Last 24 Hours: Laboratory Results - last 24 hr 03/18/19 Range/Units 08:30 APTT 28 (22-31) SECONDS Med Orders - Current: Current Medications Albuterol (Proventil Hfa) 0 gm INH Q4HR PRN PRN Reason: Shortness of Breath Artificial Tears (Refresh Liquigel 1%) 0 ml EYEBOTH BID [facility] Last Admin: 03/18/19 20:39 Dose: 1 drop Bisacodyl (Dulcolax) 5 mg PO DAILY PRN PRN Reason: Constipation Calcium Carbonate (Calcium Carbonate/Vitamin D 600 Mg-200 Unit) 1 tab PO DAILY [facility] Cholecalciferol (Vitamin D3) 5,000 unit PO DAILY [facility] Cyclobenzaprine HCl (Flexeril) 10 mg PO BID PRN PRN Reason: Spasms Docusate Sodium (Colace) 100 mg PO BID [facility] Last Admin: 03/18/19 20:39 Dose: 100 mg Famotidine (Pepcid) 20 mg PO Q12H [facility] Last Admin: 03/18/19 20:39 Dose: 20 mg Fluticasone Propionate (Flonase) 0 gm NASBOTH DAILY [facility] Cefazolin Sodium/Dextrose 2 gm (/ Premix) 50 mls @ 100 mls/hr IV Q8H [facility] Stop: 03/19/19 10:29 Last Admin: 03/19/19 01:18 Dose: 100 mls/hr Magnesium Hydroxide (Milk Of Magnesia) 30 ml PO BID PRN PRN Reason: Constipation Morphine Sulfate (Morphine) 2 mg IVPUSH Q2H PRN PRN Reason: Breakthrough Pain Naloxone HCl (Narcan) 0.1 mg IVPUSH Q5M PRN PRN Reason: Oversedation Clindamycin Phosphate [Cleocin] Topical Pt's Own Med 0 dose TOP BID [facility] Last Admin: 03/18/19 20:40 Dose: Not Given Ondansetron HCl (Zofran) 4 mg IVPUSH Q6H PRN PRN Reason: Nausea/Vomiting Oxycodone/Acetaminophen (Percocet 325-5 Mg) 1 - 2 tab PO Q4H PRN PRN Reason: Pain Fluticasone/Salmeterol Pt's Own Medication 0 each INH BID [facility] Last Admin: 03/18/19 20:43 Dose: 2 each Polyethylene Glycol (Miralax) 17 gm PO DAILY [facility] Potassium Chloride (Klor-Con M20) 20 meq PO DAILY [facility] Rivaroxaban (Xarelto) 10 mg PO DAILY [facility] Senna (Senna) 8.6 mg PO BID PRN PRN Reason: Constipation Vit A/Vit C/Vit E/Selen/Cu/Zn/Lutei (Icaps Mv) 2 tab PO BID [facility] Last Admin: 03/18/19 20:39 Dose: 2 tab Discontinued Medications Bupivacaine HCl (Sensorcaine-Mpf 0.75%) Confirm Administered Dose 30 ml .ROUTE .STK-MED ONE Stop: 03/18/19 08:16 Bupivacaine HCl (Sensorcaine-Mpf 0.25%) Confirm Administered Dose 30 ml .ROUTE .STK-MED ONE Stop: 03/18/19 08:55 Last Admin: 03/18/19 11:03 Dose: 30 ml Cefazolin Sodium (Ancef) Confirm Administered Dose 2 gm .ROUTE .STK-MED ONE Stop: 03/18/19 08:13 Last Admin: 03/18/19 11:00 Dose: 2 gm Cefazolin Sodium (Ancef) Confirm Administered Dose 2 gm .ROUTE .STK-MED ONE Stop: 03/18/19 08:55 Morphine Sulfate 8 mg/Epinephrine HCl 0.3 mg/Cefuroxime Sodium 750 mg/Ketorolac Tromethamine 30 mg/Sodium Chloride 27.9 ml 0 mg .XX ONETIME ONE Stop: 03/18/19 10:01 Last Admin: 03/18/19 11:05 Dose: 788.3 mg Ephedrine Sulfate (Ephedrine In Ns) Confirm Administered Dose 25 mg .ROUTE .STK- MED ONE Stop: 03/18/19 09:42 Fentanyl (Sublimaze) Confirm Administered Dose 100 mcg .ROUTE .STK-MED ONE Stop: 03/18/19 08:12 Fentanyl (Sublimaze) 50 mcg IVPUSH Q5M PRN PRN Reason: Pain Stop: 03/18/19 23:00 Last Admin: 03/18/19 12:17 Dose: 50 mcg Glycopyrrolate () Confirm Administered Dose 1 mg .ROUTE .STK-MED ONE Stop: 03/18/19 09:42 Lactated Ringer's (Ringers, Lactated) 1,000 mls @ 125 mls/hr IV ASDIRECTED [facility] Stop: 03/18/19 23:00 Last Admin: 03/18/19 08:30 Dose: 125 mls/hr Lidocaine HCl (Xylocaine-Mpf 1%) Confirm Administered Dose 0 mls @ as directed .ROUTE .STK-MED ONE Stop: 03/18/19 08:11 Lidocaine HCl (Xylocaine-Mpf 1%) Confirm Administered Dose 5 mls @ as directed .ROUTE .STK-MED ONE Stop: 03/18/19 08:15 Lactated Ringer's (Ringers, Lactated) Confirm Administered Dose 1,000 mls @ as directed .ROUTE .STK-MED ONE Stop: 03/18/19 09:53 Iodine (Iodine 2% Mild Tincture) Confirm Administered Dose 30 ml .ROUTE .STK- MED ONE Stop: 03/18/19 08:55 Last Admin: 03/18/19 10:58 Dose: 18 ml Ketorolac Tromethamine (Toradol) 15 mg IVPUSH Q6H PRN PRN Reason: Pain Last Admin: 03/19/19 06:15 Dose: 15 mg Lidocaine/Sodium Bicarbonate (Buffered Lidocaine 1% In Ns 8.4%) 0.25 ml IDERM ONETIME PRN PRN Reason: Prior to IV Start Stop: 03/18/19 18:00 Last Admin: 03/18/19 08:29 Dose: 0.25 ml Magnesium Hydroxide (Milk Of Magnesia) 30 ml PO ASDIRECTED [facility] Midazolam HCl (Versed 1 Mg/Ml) Confirm Administered Dose 2 mg .ROUTE .STK-MED ONE Stop: 03/18/19 08:12 Non-Formulary Medication (Ranitidine Hcl) 150 tab PO BID [facility] Ondansetron HCl (Zofran) 4 mg IVPUSH ONETIME PRN PRN Reason: Nausea/Vomiting Propofol (Diprivan 20 Ml) Confirm Administered Dose 400 mg .ROUTE .STK-MED ONE Stop: 03/18/19 08:12 Propofol (Diprivan 20 Ml) Confirm Administered Dose 200 mg .ROUTE .STK-MED ONE Stop: 03/18/19 10:50 Ropivacaine (Naropin 0.5%) Confirm Administered Dose 30 ml .ROUTE .STK-MED ONE Stop: 03/18/19 07:27 Sodium Chloride (Saline Flush) 10 ml FLUSH ASDIRECTED PRN PRN Reason: Keep Vein Open Stop: 03/18/19 18:00 Tranexamic Acid (Cyklokapron) Confirm Administered Dose 1,000 mg .ROUTE .STK- MED ONE Stop: 03/18/19 08:55 Last Admin: 03/18/19 11:13 Dose: 1,000 mg Vancomycin HCl (Vancomycin) Confirm Administered Dose 1 gm .ROUTE .STK-MED ONE Stop: 03/18/19 08:55 Last Admin: 03/18/19 11:10 Dose: 1 gm - Exam Quality Assessment: DVT Prophylaxis. No: Supplemental Oxygen, Urine Catheter General: Alert, Oriented, Cooperative, No Acute Distress HEENT: Pupils Equal, Pupils Reactive, EOMI, Mucous Membr. Moist/[place] Neck: Supple, Trachea Midline, No JVD Lungs: Clear to Auscultation, Normal Respiratory Effort Cardiovascular: Regular Rhythm, Bradycardia (HR noted to be mid 30's to 50's while sleepin, mid 50's to 80's while awake ) GI/Abdominal Exam: Normal Bowel Sounds, Soft, Non-Tender, No Distention (Female) Exam: Deferred Back Exam: Normal Inspection, Full Range of Motion Extremities: Normal Capillary Refill, Pedal Edema (trace ), Leg Pain, Limited Range of Motion, Other (Bandage in place on left lef) Peripheral Pulses: 2+: Radial (L), Radial (R), Dorsalis Pedis (L), Dorsalis Pedis (R) Skin: Warm, Dry, Intact Wound/Incisions: Dressing Dry and Intact Neurological: No New Focal Deficit Psy/Mental Status: Alert, Normal Affect, Normal Mood Consult PN Assessment/Plan POD#: 1 Procedures: Procedures APPLY FOREARM SPLINT (09/17/15) ASSAY OF MAGNESIUM (09/17/15) ASSAY OF TROPONIN QUANT (09/17/15) ASSAY THYROID STIM HORMONE (09/17/15) CARDIOVASCULAR STRESS TEST (02/19/19) CARPAL TUNNEL SURGERY (03/31/16) COLONOSCOPY AND BIOPSY (09/13/18) COLONOSCOPY W/LESION REMOVAL (09/13/18) COMPLETE CBC AUTOMATED (09/17/15) COMPREHEN METABOLIC PANEL (09/17/15) CREATINE MB FRACTION (09/17/15) DXA BONE DENSITY AXIAL (11/06/17) EGD BIOPSY SINGLE/MULTIPLE (03/16/17) FLUOROSCOPY <1 HR PHYS/QHP (09/18/15) HT MUSCLE IMAGE SPECT MULT (02/19/19) INCISE FINGER TENDON SHEATH (09/28/17) MEASURE BLOOD OXYGEN LEVEL (06/29/15) METABOLIC PANEL TOTAL CA (10/18/16) MR-STAPH DNA AMP PROBE (09/28/17) MRI ORBT/FAC/NCK W/O &W/DYE (03/01/18) OFFICE/OUTPATIENT VISIT NEW (09/17/15) PROTHROMBIN TIME (09/17/15) ROUTINE VENIPUNCTURE (10/18/16) TISSUE EXAM BY PATHOLOGIST (10/08/14) TREAT FRACTURE RADIUS/ULNA (09/18/15) X-RAY EXAM OF FOREARM (09/17/15) X-RAY EXAM OF WRIST (09/17/15) (1) S/P total knee arthroplasty SNOMED Code(s): 6520677618881, 668195677, 0678308464693 Code(s): Z96.659 - PRESENCE OF UNSPECIFIED ARTIFICIAL KNEE JOINT Priority: High Current Visit: Yes Qualifiers: Laterality: left Qualified Code(s): Z96.652 - Presence of left artificial knee joint (2) Osteoarthritis SNOMED Code(s): 185849602 Code(s): M19.90 - UNSPECIFIED OSTEOARTHRITIS, UNSPECIFIED SITE Priority: High Current Visit: Yes Qualifiers: Osteoarthritis location: knee Osteoarthritis type: primary Laterality: left Qualified Code(s): M17.12 - Unilateral primary osteoarthritis, left knee (3) HTN (hypertension) SNOMED Code(s): 35093681 Code(s): I10 - ESSENTIAL (PRIMARY) HYPERTENSION Priority: Medium Current Visit: No Qualifiers: Hypertension type: unspecified Qualified Code(s): I10 - Essential (primary ) hypertension (4) GERD (gastroesophageal reflux disease) SNOMED Code(s): 993206334 Code(s): K21.9 - GASTRO-ESOPHAGEAL REFLUX DISEASE WITHOUT ESOPHAGITIS Priority: Low Current Visit: No Qualifiers: Esophagitis presence: with esophagitis Qualified Code(s): K21.0 - Gastro- esophageal reflux disease with esophagitis (5) CHF (congestive heart failure) SNOMED Code(s): 40565014 Code(s): I50.9 - HEART FAILURE, UNSPECIFIED Priority: Medium Current Visit: No Qualifiers: Heart failure type: unspecified Heart failure chronicity: unspecified Qualified Code(s): I50.9 - Heart failure, unspecified (6) Asthma SNOMED Code(s): 385382076 Code(s): J45.909 - UNSPECIFIED ASTHMA, UNCOMPLICATED Priority: Low Current Visit: No Qualifiers: Asthma severity: unspecified severity Asthma persistence: unspecified Asthma complication type: unspecified Qualified Code(s): J45.909 - Unspecified asthma, uncomplicated (7) Precordial pain SNOMED Code(s): 10126823 Code(s): R07.2 - PRECORDIAL PAIN Priority: Low Current Visit: No (8) Chronic ulcer of left lower extremity SNOMED Code(s): 10234541 Code(s): L97.929 - NON-PRS CHRONIC ULC UNSP PRT OF L LOW LEG W UNSP SEVERITY Priority: Medium Current Visit: No Qualifiers: Non-pressure ulcer stage: unspecified non-pressure ulcer stage Qualified Code(s): L97.929 - Non-pressure chronic ulcer of unspecified part of left lower leg with unspecified severity (9) History of uterine cancer SNOMED Code(s): 861122983 Code(s): Z85.42 - PERSONAL HISTORY OF MALIGNANT NEOPLASM OF OTH PRT UTERUS Priority: Low Current Visit: No (10) AKOSUA (obstructive sleep apnea) SNOMED Code(s): 03751753 Code(s): G47.33 - OBSTRUCTIVE SLEEP APNEA (ADULT) (PEDIATRIC) Priority: Medium Current Visit: No (11) RLS (restless legs syndrome) SNOMED Code(s): 19182492 Code(s): G25.81 - RESTLESS LEGS SYNDROME Priority: Low Current Visit: No (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 SNOMED Code(s): 124275914 Code(s): K22.70 - MARTIN'S ESOPHAGUS WITHOUT DYSPLASIA Priority: Low Current Visit: No Qualifiers: Martin's esophagus type: with dysplasia of unspecified degree Qualified Code(s): K22.719 - Martin's esophagus with dysplasia, unspecified; K22.71 - Martin's esophagus with dysplasia (13) Umbilical hernia SNOMED Code(s): 334889528 Code(s): K42.9 - UMBILICAL HERNIA WITHOUT OBSTRUCTION OR GANGRENE Priority : Low Current Visit: No Qualifiers: Obstruction and gangrene presence: without obstruction or gangrene Qualified Code(s): K42.9 - Umbilical hernia without obstruction or gangrene (14) History of breast cancer SNOMED Code(s): 133955244 Code(s): Z85.3 - PERSONAL HISTORY OF MALIGNANT NEOPLASM OF BREAST Priority : Low Current Visit: No (15) Bradycardia SNOMED Code(s): 14059025 Code(s): R00.1 - BRADYCARDIA, UNSPECIFIED Priority: Medium Current Visit : Yes Problem List Initiated/Reviewed/Updated: Yes My Orders Last 24 Hours: My Active Orders 03/18/19 13:56 Albuterol [Proventil HFA] 0 gm INH Q4HR PRN 03/18/19 13:57 Consult to Respiratory Therapy [Respiratory Care Assess and Treatment] [CONS] Routine 03/18/19 14:22 Patient Status [ADT] Routine 03/18/19 14:45 CPAP Noctural Home [RT BiPAP/CPAP] [RC] ASDIRECTED 03/18/19 21:00 Carboxymethylcellulose Sodium [Refresh Liquigel 1%] 0 ml EYEBOTH BID Clindamycin Phosphate [Cleocin] 0 dose TOP BID Multivitamins/Min/FA/Lut/Zeax [ICaps MV] 2 tab PO BID Patient's Own Medication [Ptom] 0 each INH BID 03/19/19 09:00 Calcium Carbonate/Vitamin D3 [Calcium Carbonate/Vitamin D 600 MG-200 Unit] 1 tab PO DAILY Cholecalciferol (Vitamin D3) [Vitamin D3] 5,000 unit PO DAILY Fluticasone Propionate [Flonase] 0 gm NASBOTH DAILY Polyethylene Glycol 3350 [MiraLAX] 17 gm PO DAILY Potassium Chloride [Klor-Con M20] 20 meq PO DAILY Plan: I/P: Acute: S/P left total knee arthroplasty - post-operative day 1 -DVT prophylaxis and pain management per primary care team -PT/OT -IS/RT -Monitor oxygen saturation -Titrate oxygen as needed -Home medications reviewed -Vital signs stable -Monitor labs -Pre-operative Hgb was 14.3; Now 11.7 -Pre-operative GFR was 69; Now >60 -Pre-operative EKG showed 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 Sinus bradycardia with a RBBB and transient hypotension noted. -Normal CXR on 02/18/19 with no cardiomegaly noted -Telemetry -Asymptomatic -She may benefit from cardiology consultation in the future -Discussed with Dr. Alamo Chronic: HTN GERD CHF Asthma Precordial pain Chronic LLE ulcer Uterine cancer LLE phlebitis AKOSUA with CPAP use RLS Martin's esophagus Breast cancer Umbilical hernia Obesity Plan: CM for discharge planning GI prophylaxis Home medications as indicated Other orders as listed above Routine AM labs She is a full code. Her PCP is Dr. Stein From a hospitalist standpoint Franny is doing well. She has been bradycardic as mentioned above but otherwise her vital signs and labs have remained stable. She is off of oxygen and has urinated. No nursing or patient concerns. She has been using her IS. She has been up ambulating and working with therapies. She will be cleared for discharge pending primary team and PT/OT agreement. Thank you for allowing us to participate in the care of this patient!!
--- NOTE | 2019-03-19 07:46 | PCM48HPAN ---
Post Anesthesia Note - EVALUATION WITHIN 48HRS OF ANESTHETIC Vital Signs in Normal Range: Yes Patient Participated in Evaluation: Yes Respiratory Function Stable: Yes Airway Patent: Yes Cardiovascular Function Stable: Yes Hydration Status Stable: Yes Pain Control Satisfactory: Yes Nausea and Vomiting Control Satisfactory: Yes Mental Status Recovered: Yes Vital Signs: Last Vital Signs Temp 36.7 C 03/19/19 04:33 Pulse 56 L 03/19/19 04:33 Resp 20 03/19/19 04:33 BP 123/100 H 03/19/19 04:33 Pulse Ox 92 L 03/19/19 04:33
--- NOTE | 2019-03-19 07:59 | PCM.SURGPN ---
- General Info Date of Service: 03/19/19 POD#: 1 Functional Status: Reports: Pain Controlled, Tolerating Diet, Ambulating, Urinating, Incentive Spirometry, Other (The pt states she is suprised that she is "doing so well". ) - Patient Data Vitals - Most Recent: Last Vital Signs Temp 98.1 F 03/19/19 04:33 Pulse 56 L 03/19/19 04:33 Resp 20 03/19/19 04:33 BP 123/100 H 03/19/19 04:33 Pulse Ox 92 L 03/19/19 04:33 Weight - Most Recent: 215 lb 11.2 oz I&O - Last 24 Hours: Intake & Output 03/18/19 03/19/19 03/19/19 22:59 06:59 14:59 Intake Total 800 Output Total 400 Balance 400 Lab Results Last 24 Hrs: Laboratory Results - last 24 hr 03/18/19 03/19/19 03/19/19 Range/Units 08:30 05:07 05:07 WBC 6.29 (3.98-10.04) K/mm3 RBC 4.03 (3.98-5.22) M/mm3 Hgb 11.6 D (11.2-15.7) gm/L Hct 36.7 (34.1-44.9) % MCV 91.1 (79.4-94.8) fl MCH 28.8 (25.6-32.2) pg MCHC 31.6 L (32.2-35.5) g/dl RDW Std Deviation 51.6 H (36.4-46.3) fL Plt Count 171 L (182-369) K/mm3 MPV 11.6 (9.4-12.3) fl APTT 28 (22-31) SECONDS Sodium 139 (136-145) mEq/L Potassium 4.1 (3.5-5.1) mEq/L Chloride 104 (98-107) mEq/L Carbon Dioxide 29 (21-32) mEq/L Anion Gap 10.1 (5-15) BUN 19 H (7-18) mg/dL Creatinine 0.7 (0.55-1.02) mg/dL Est Cr Clr Drug Dosing 44.51 mL/min Estimated GFR (MDRD) > 60 (>60) mL/min BUN/Creatinine Ratio 27.1 H (14-18) Glucose 123 H (83-115) mg/dL Calcium 8.3 L (8.5-10.1) mg/dL Total Bilirubin 1.4 H (0.2-1.0) mg/dL AST 22 (15-37) U/L ALT 18 (14-59) U/L Alkaline Phosphatase 53 (46-116) U/L Total Protein 5.8 L (6.4-8.2) g/dl Albumin 2.6 L (3.4-5.0) g/dl Globulin 3.2 gm/dL Albumin/Globulin Ratio 0.8 L (1-2) Med Orders - Current: Current Medications Albuterol (Proventil Hfa) 0 gm INH Q4HR PRN PRN Reason: Shortness of Breath Artificial Tears (Refresh Liquigel 1%) 0 ml EYEBOTH BID [facility] Last Admin: 03/18/19 20:39 Dose: 1 drop Bisacodyl (Dulcolax) 5 mg PO DAILY PRN PRN Reason: Constipation Calcium Carbonate (Calcium Carbonate/Vitamin D 600 Mg-200 Unit) 1 tab PO DAILY [facility] Cholecalciferol (Vitamin D3) 5,000 unit PO DAILY [facility] Cyclobenzaprine HCl (Flexeril) 10 mg PO BID PRN PRN Reason: Spasms Docusate Sodium (Colace) 100 mg PO BID [facility] Last Admin: 03/18/19 20:39 Dose: 100 mg Famotidine (Pepcid) 20 mg PO Q12H [facility] Last Admin: 03/18/19 20:39 Dose: 20 mg Fluticasone Propionate (Flonase) 0 gm NASBOTH DAILY [facility] Cefazolin Sodium/Dextrose 2 gm (/ Premix) 50 mls @ 100 mls/hr IV Q8H [facility] Stop: 03/19/19 10:29 Last Admin: 03/19/19 01:18 Dose: 100 mls/hr Magnesium Hydroxide (Milk Of Magnesia) 30 ml PO BID PRN PRN Reason: Constipation Morphine Sulfate (Morphine) 2 mg IVPUSH Q2H PRN PRN Reason: Breakthrough Pain Naloxone HCl (Narcan) 0.1 mg IVPUSH Q5M PRN PRN Reason: Oversedation Clindamycin Phosphate [Cleocin] Topical Pt's Own Med 0 dose TOP BID [facility] Last Admin: 03/18/19 20:40 Dose: Not Given Ondansetron HCl (Zofran) 4 mg IVPUSH Q6H PRN PRN Reason: Nausea/Vomiting Oxycodone/Acetaminophen (Percocet 325-5 Mg) 1 - 2 tab PO Q4H PRN PRN Reason: Pain Fluticasone/Salmeterol Pt's Own Medication 0 each INH BID [facility] Last Admin: 03/18/19 20:43 Dose: 2 each Polyethylene Glycol (Miralax) 17 gm PO DAILY [facility] Potassium Chloride (Klor-Con M20) 20 meq PO DAILY [facility] Rivaroxaban (Xarelto) 10 mg PO DAILY [facility] Senna (Senna) 8.6 mg PO BID PRN PRN Reason: Constipation Vit A/Vit C/Vit E/Selen/Cu/Zn/Lutei (Icaps Mv) 2 tab PO BID [facility] Last Admin: 03/18/19 20:39 Dose: 2 tab Discontinued Medications Bupivacaine HCl (Sensorcaine-Mpf 0.75%) Confirm Administered Dose 30 ml .ROUTE .STK-MED ONE Stop: 03/18/19 08:16 Bupivacaine HCl (Sensorcaine-Mpf 0.25%) Confirm Administered Dose 30 ml .ROUTE .STK-MED ONE Stop: 03/18/19 08:55 Last Admin: 03/18/19 11:03 Dose: 30 ml Cefazolin Sodium (Ancef) Confirm Administered Dose 2 gm .ROUTE .STK-MED ONE Stop: 03/18/19 08:13 Last Admin: 03/18/19 11:00 Dose: 2 gm Cefazolin Sodium (Ancef) Confirm Administered Dose 2 gm .ROUTE .STK-MED ONE Stop: 03/18/19 08:55 Morphine Sulfate 8 mg/Epinephrine HCl 0.3 mg/Cefuroxime Sodium 750 mg/Ketorolac Tromethamine 30 mg/Sodium Chloride 27.9 ml 0 mg .XX ONETIME ONE Stop: 03/18/19 10:01 Last Admin: 03/18/19 11:05 Dose: 788.3 mg Ephedrine Sulfate (Ephedrine In Ns) Confirm Administered Dose 25 mg .ROUTE .STK- MED ONE Stop: 03/18/19 09:42 Fentanyl (Sublimaze) Confirm Administered Dose 100 mcg .ROUTE .STK-MED ONE Stop: 03/18/19 08:12 Fentanyl (Sublimaze) 50 mcg IVPUSH Q5M PRN PRN Reason: Pain Stop: 03/18/19 23:00 Last Admin: 03/18/19 12:17 Dose: 50 mcg Glycopyrrolate () Confirm Administered Dose 1 mg .ROUTE .STK-MED ONE Stop: 03/18/19 09:42 Lactated Ringer's (Ringers, Lactated) 1,000 mls @ 125 mls/hr IV ASDIRECTED [facility] Stop: 03/18/19 23:00 Last Admin: 03/18/19 08:30 Dose: 125 mls/hr Lidocaine HCl (Xylocaine-Mpf 1%) Confirm Administered Dose 0 mls @ as directed .ROUTE .STK-MED ONE Stop: 03/18/19 08:11 Lidocaine HCl (Xylocaine-Mpf 1%) Confirm Administered Dose 5 mls @ as directed .ROUTE .STK-MED ONE Stop: 03/18/19 08:15 Lactated Ringer's (Ringers, Lactated) Confirm Administered Dose 1,000 mls @ as directed .ROUTE .STK-MED ONE Stop: 03/18/19 09:53 Iodine (Iodine 2% Mild Tincture) Confirm Administered Dose 30 ml .ROUTE .STK- MED ONE Stop: 03/18/19 08:55 Last Admin: 03/18/19 10:58 Dose: 18 ml Ketorolac Tromethamine (Toradol) 15 mg IVPUSH Q6H PRN PRN Reason: Pain Last Admin: 03/19/19 06:15 Dose: 15 mg Lidocaine/Sodium Bicarbonate (Buffered Lidocaine 1% In Ns 8.4%) 0.25 ml IDERM ONETIME PRN PRN Reason: Prior to IV Start Stop: 03/18/19 18:00 Last Admin: 03/18/19 08:29 Dose: 0.25 ml Magnesium Hydroxide (Milk Of Magnesia) 30 ml PO ASDIRECTED [facility] Midazolam HCl (Versed 1 Mg/Ml) Confirm Administered Dose 2 mg .ROUTE .STK-MED ONE Stop: 03/18/19 08:12 Non-Formulary Medication (Ranitidine Hcl) 150 tab PO BID [facility] Ondansetron HCl (Zofran) 4 mg IVPUSH ONETIME PRN PRN Reason: Nausea/Vomiting Propofol (Diprivan 20 Ml) Confirm Administered Dose 400 mg .ROUTE .STK-MED ONE Stop: 03/18/19 08:12 Propofol (Diprivan 20 Ml) Confirm Administered Dose 200 mg .ROUTE .STK-MED ONE Stop: 03/18/19 10:50 Ropivacaine (Naropin 0.5%) Confirm Administered Dose 30 ml .ROUTE .STK-MED ONE Stop: 03/18/19 07:27 Sodium Chloride (Saline Flush) 10 ml FLUSH ASDIRECTED PRN PRN Reason: Keep Vein Open Stop: 03/18/19 18:00 Tranexamic Acid (Cyklokapron) Confirm Administered Dose 1,000 mg .ROUTE .STK- MED ONE Stop: 03/18/19 08:55 Last Admin: 03/18/19 11:13 Dose: 1,000 mg Vancomycin HCl (Vancomycin) Confirm Administered Dose 1 gm .ROUTE .STK-MED ONE Stop: 03/18/19 08:55 Last Admin: 03/18/19 11:10 Dose: 1 gm - Exam Wound/Incisions: Dressing Dry and Intact General: Alert, Cooperative, No Acute Distress Lungs: Normal Respiratory Effort Extremities: Other (NVS intact for BLE. Mesha's negative.) - Problem List Review Problem List Initiated/Reviewed/Updated: Yes - My Orders Last 24 Hours: Active Orders 24 hr Category Date Time Status Patient Status [ADT] Routine ADT 03/18/19 14:22 Active Ambulate [RC] DAILY Care 03/18/19 07:11 Active Antiembolic Devices [RC] BID Care 03/18/19 07:12 Active CPAP Noctural Home [RT BiPAP/CPAP] [RC] ASDIRECTED Care 03/18/19 14:45 Active May Shower [RC] DAILY Care 03/18/19 07:11 Active Notify Provider Consults [RC] DAILY Care 03/18/19 07:14 Active Oxygen Therapy [RC] PRN Care 03/18/19 07:11 Active Pulse Oximetry [RC] .PRN Care 03/18/19 09:55 Active RT Incentive Spirometry [RC] Q1HWA Care 03/18/19 07:09 Active Ready for Discharge [RC] PER UNIT ROUTINE Care 03/19/19 07:54 Ordered Up to Chair [RC] DAILY Care 03/18/19 07:11 Active Vital Signs [RC] 00,04,08,12,16,20 Care 03/18/19 07:11 Active Vital Signs [RC] Q15M Care 03/18/19 09:55 Inactive Consult to Physician [CONS] Routine Cons 03/18/19 07:11 Active Consult to Respiratory Therapy [Respiratory Care Assess Cons 03/18/19 13:57 Active and Treatment] [CONS] Routine OT Evaluation and Treatment [CONS] Routine Cons 03/18/19 07:09 Active PT Evaluation and Treatment [CONS] Routine Cons 03/18/19 07:09 Active Regular Diet [DIET] Diet 03/18/19 Lunch Active Acetaminophen/oxyCODONE [Percocet 325-5 MG] Med 03/18/19 11:00 Active 1 - 2 tab PO Q4H PRN Albuterol [Proventil HFA] Med 03/18/19 13:56 Active 0 gm INH Q4HR PRN Bisacodyl [Dulcolax] Med 03/18/19 11:00 Active 5 mg PO DAILY PRN Calcium Carbonate/Vitamin D3 [Calcium Carbonate/Vitamin Med 03/19/19 09:00 Active D 600 MG-200 Unit] 1 tab PO DAILY Carboxymethylcellulose Sodium [Refresh Liquigel 1%] Med 03/18/19 21:00 Active 0 ml EYEBOTH BID Cholecalciferol (Vitamin D3) [Vitamin D3] Med 03/19/19 09:00 Active 5,000 unit PO DAILY Clindamycin Phosphate [Cleocin] Med 03/18/19 21:00 Active 0 dose TOP BID Cyclobenzaprine [Flexeril] Med 03/18/19 11:00 Active 10 mg PO BID PRN Docusate Sodium [Colace] Med 03/18/19 21:00 Active 100 mg PO BID Famotidine [Pepcid] Med 03/18/19 21:00 Active 20 mg PO Q12H Fluticasone Propionate [Flonase] Med 03/19/19 09:00 Active 0 gm NASBOTH DAILY Magnesium Hydroxide [Milk of Magnesia] Med 03/18/19 11:00 Active 30 ml PO BID PRN Morphine Med 03/18/19 11:00 Active 2 mg IVPUSH Q2H PRN Multivitamins/Min/FA/Lut/Zeax [ICaps MV] Med 03/18/19 21:00 Active 2 tab PO BID Naloxone [Narcan] Med 03/18/19 11:00 Active 0.1 mg IVPUSH Q5M PRN Ondansetron [Zofran] Med 03/18/19 11:00 Active 4 mg IVPUSH Q6H PRN Patient's Own Medication [Ptom] Med 03/18/19 21:00 Active 0 each INH BID Polyethylene Glycol 3350 [MiraLAX] Med 03/19/19 09:00 Active 17 gm PO DAILY Potassium Chloride [Klor-Con M20] Med 03/19/19 09:00 Active 20 meq PO DAILY Rivaroxaban [Xarelto] Med 03/19/19 09:00 Active 10 mg PO DAILY Sennosides [Senna] Med 03/18/19 11:00 Active 8.6 mg PO BID PRN ceFAZolin [Ancef] 2 gm Med 03/18/19 18:00 Active Premix Bag 1 bag IV Q8H Antiembolic Hose [OM.PC] Per Unit Routine Oth 03/18/19 07:13 Ordered Ice Therapy [OM.PC] Per Unit Routine Oth 03/18/19 07:12 Ordered Sequential Compression Device [OM.PC] Per Unit Routine Oth 03/18/19 07:09 Ordered Resuscitation Status Routine Resus Stat 03/18/19 07:11 Ordered Medication Orders Albuterol (Proventil Hfa) 0 gm INH Q4HR PRN PRN Reason: Shortness of Breath Artificial Tears (Refresh Liquigel 1%) 0 ml EYEBOTH BID [facility] Last Admin: 03/18/19 20:39 Dose: 1 drop Bisacodyl (Dulcolax) 5 mg PO DAILY PRN PRN Reason: Constipation Calcium Carbonate (Calcium Carbonate/Vitamin D 600 Mg-200 Unit) 1 tab PO DAILY [facility] Cholecalciferol (Vitamin D3) 5,000 unit PO DAILY [facility] Cyclobenzaprine HCl (Flexeril) 10 mg PO BID PRN PRN Reason: Spasms Docusate Sodium (Colace) 100 mg PO BID [facility] Last Admin: 03/18/19 20:39 Dose: 100 mg Famotidine (Pepcid) 20 mg PO Q12H [facility] Last Admin: 03/18/19 20:39 Dose: 20 mg Fluticasone Propionate (Flonase) 0 gm NASBOTH DAILY [facility] Cefazolin Sodium/Dextrose 2 gm (/ Premix) 50 mls @ 100 mls/hr IV Q8H [facility] Stop: 03/19/19 10:29 Last Admin: 03/19/19 01:18 Dose: 100 mls/hr Infusion: 03/18/19 18:23 Dose: 100 mls/hr Admin: 03/18/19 17:53 Dose: 100 mls/hr Magnesium Hydroxide (Milk Of Magnesia) 30 ml PO BID PRN PRN Reason: Constipation Morphine Sulfate (Morphine) 2 mg IVPUSH Q2H PRN PRN Reason: Breakthrough Pain Naloxone HCl (Narcan) 0.1 mg IVPUSH Q5M PRN PRN Reason: Oversedation Clindamycin Phosphate [Cleocin] Topical Pt's Own Med 0 dose TOP BID [facility] Last Admin: 03/18/19 20:40 Dose: Ondansetron HCl (Zofran) 4 mg IVPUSH Q6H PRN PRN Reason: Nausea/Vomiting Oxycodone/Acetaminophen (Percocet 325-5 Mg) 1 - 2 tab PO Q4H PRN PRN Reason: Pain Fluticasone/Salmeterol Pt's Own Medication 0 each INH BID [facility] Last Admin: 03/18/19 20:43 Dose: 2 each Polyethylene Glycol (Miralax) 17 gm PO DAILY [facility] Potassium Chloride (Klor-Con M20) 20 meq PO DAILY [facility] Rivaroxaban (Xarelto) 10 mg PO DAILY [facility] Senna (Senna) 8.6 mg PO BID PRN PRN Reason: Constipation Vit A/Vit C/Vit E/Selen/Cu/Zn/Lutei (Icaps Mv) 2 tab PO BID [facility] Last Admin: 03/18/19 20:39 Dose: 2 tab - Assessment Assessment (Free Text/Narrative):: POD#1 - s/p left TKA - Plan Plan (Free Text/Narrative):: 1. Hgb 11.6. 2. Hospitalist service has been managing pt's BPs and pulse. 3. Xarelto x 2 wks and then will transition to ASA. Hx LE phlebitis. 4. Discharge to home today if cleared by Hospitalist service and therapies. The pt's case was discussed with Dr. Torres. Dr. Torres also evaluated the pt today.
[2019-03-19 08:35] VITALS: BP 123/73
[2019-03-19] MEDS: CLINDAMYCIN PHOSPHATE TOP SCH (08:56)
[2019-03-19] MEDS: Carboxymethylcellulose Sodium 1% Ophth Gel 15 ML Bottle EYEBOTH SCH (08:58)
[2019-03-19] MEDS: SALMETEROL INH SCH (08:58)
[2019-03-19] MEDS: FLUTICASONE INH SCH (08:58)
[2019-03-19] MEDS ORDERED: Rivaroxaban 10 MG Tab PO SCH (09:00)
[2019-03-19] MEDS ORDERED: Potassium Chloride 20 MEQ Tab.ER PO SCH (09:00)
[2019-03-19] MEDS ORDERED: Fluticasone Propionate Nasal Spray 16 GM Bottle NASBOTH SCH (09:00)
[2019-03-19] MEDS ORDERED: Polyethylene Glycol 3350 Powder 17 GM Packet PO SCH (09:00)
[2019-03-19] MEDS ORDERED: Calcium Carbonate/Vitamin D3 600 MG-200 Units Tab PO SCH (09:00)
[2019-03-19] MEDS ORDERED: Cholecalciferol (Vitamin D3) 5,000 UNIT Tab PO SCH (09:00)
[2019-03-19] MEDS: Multivitamins with Minerals/Folic Acid/Lutein/Zeaxanth Tab PO SCH (09:18)
[2019-03-19] MEDS: Docusate Sodium 100 MG Cap PO SCH (09:19)
[2019-03-19] MEDS: Famotidine 20 MG Tab PO SCH (09:19)
--- NOTE | 2019-03-19 13:52 | PCM.OPNOTE ---
- General Post-Op/Procedure Note Date of Surgery/Procedure: 03/18/19 Operative Procedure(s): left total knee arthroplasty Pre Op Diagnosis: left knee osteoarthrosis Post-Op Diagnosis: Same Anesthesia Technique: Local, MAC, Spinal Primary Surgeon: Royal Torres Anesthesia Provider: Ewelina Cohn Rotary Pump Operator: Magaly Gonzalez Rotary Pump Operator: Lisa Oliveira EBMichelle in mLs: 10 Complications: None Condition: Good Free Text/Narrative:: Intake & Output 03/18/19 03/19/19 03/19/19 22:59 06:59 14:59 Intake Total 800 120 Output Total 400 Balance 400 120 size 5 femur size 4 tibia 13mm TS 32x10
--- NOTE | 2019-03-19 17:15 | PCM.DCSUM1 ---
Discharge Summary - Hospital Course Brief History: Franny is an 83 yo female who underwent left TKA with Dr. Torres on 03-18-2019. The procedure was completed under spinal anesthesia with sedation. The pt tolerated the procedure well and was admitted to the Medical- Surgical Unit. Medical management was provided by the Hospitalist service. The pt's Hospital course was remarkable for bradycardia which was monitored and treated by the Hospitalist service. The pt's Hgb on POD#1 was 11.6 On POD#1, Xarelto 10mg PO daily was initiated for VTE prophylaxis. SCDs and TEDs were also ordered. A JUSTIN dressing was placed at the incision site at the time of surgery and remained clean and dry. The pt participated in P.T. and O.T. and progressed well. The pt was allowed to WBAT. On POD#1, the pt was deemed appropriate to discharge to home. - Discharge Data Discharge Date: 03/19/19 Discharge Disposition: Home, Self-Care 01 Condition: Good - Patient Summary/Data Operative Procedure(s) Performed: left total knee arthroplasty Consults: Consultations 03/18/19 07:09 OT Evaluation and Treatment [CONS] Routine PT Evaluation and Treatment [CONS] Routine 03/18/19 07:11 Consult to Physician [CONS] Routine 03/18/19 13:57 Consult to Respiratory Therapy [Respiratory Care Assess and Treatment] [CONS] Routine - Patient Instructions Diet: Usual Diet as Tolerated Activity: Apply Ice, As Tolerated, Elevate Extremity, Full Weight Bearing Driving: Do Not Drive Showering/Bathing: May Shower Wound/Incision Care: Keep Operative Site/Wound Site Clean and Dry, Do NOT Change Dressing Notify Provider of: Fever, Increased Pain, Swelling and Redness, Drainage, Nausea and/or Vomiting Other/Special Instructions: Please get up and moving around EVERY HOUR while awake. This helps to prevent blood clots. Please use your walker and have help with mobility as needed. Take a short walk in your home every hour while awake. Please take the Xarelto blood thinner medication daily as directed. At home, please complete the exercises that you learned during the Hospital stay. Schedule for physical therapy. Use the pain medication as needed. The medication may cause drowsiness and constipation. Contact your primary care provider for instructions if you are constipated. You may use a stool softener like docusate sodium or Colace 100mg twice daily and/or a laxative like Miralax daily for constipation. Increase your water and fiber intake while you are using the pain medication. Discontinue use of the pain medication as soon as able. Please do not use other medications that may cause drowsiness (other pain medications, anxiety pills, cold medications, sleeping pills, etc) while using the prescription pain medication. Do not use alcohol while using the pain medication. You may use acetaminophen or Tylenol for pain management, however, please ensure you are not using over 4000 mg or 4 grams of acetaminophen per day from all sources. Your pain medication has 325mg of acetaminophen per tablet. Wear the GARRETT hose during the day and you may remove these at night. Elevate the limb to decrease swelling. Place ice to the area often. Place a towel between your skin and the blue pad. Use the incentive spirometer often. Take deep breaths throughout the day. Please keep the dressing in place until follow-up. Notify the Clinic if the dressing becomes saturated. Increase your protein intake while you are healing. Call the Clinic with questions or concerns - [phone]. - Discharge Plan *PRESCRIPTION DRUG MONITORING PROGRAM REVIEWED*: No *COPY OF PRESCRIPTION DRUG MONITORING REPORT IN PATIENT ALIA: No Prescriptions/Med Rec: Acetaminophen/oxyCODONE [Percocet 325-5 MG] 1 - 2 tab PO Q4H PRN #60 tablet PRN Reason: Pain Cyclobenzaprine [Flexeril] 10 mg PO BID PRN #20 tablet PRN Reason: Spasms Rivaroxaban [Xarelto] 10 mg PO DAILY #14 tablet Home Medications: Home Meds Albuterol Sulfate [Proair Hfa] 2 puff INH Q4HR PRN 09/18/15 [History] Antiox#10/Om3/DHA/EPA/Lut/Zeax [I-Caps with Lutein-[place] 3 SFG] 1 cap PO BID [History] Aspirin [Adult Low Dose Aspirin EC] 81 mg PO DAILY 09/18/15 [History] Calcium Carbonate/Vitamin D3 [Calcium 600 + Vit D 200] 1 tab PO DAILY 09/18/15 [ History] Estradiol [Estrace 0.01% Vaginal Crm] 1 gram VAG WEEKLY 09/18/15 [History] Furosemide [Lasix] 40 mg PO BID 09/18/15 [History] Lisinopril 10 mg PO DAILY 09/18/15 [History] Magnesium Hydroxide [Milk of Magnesia] 30 ml PO ASDIRECTED 09/18/15 [History] Propylene Glycol/Peg 400 [Systane 0.3-0.4% Eye Drops] 1 drop EYEBOTH BID [History] Ranitidine HCl 150 tab PO BID 09/18/15 [History] Cholecalciferol (Vitamin D3) [Vitamin D3] 5,000 unit PO DAILY 03/15/17 [History] Fluticasone/Salmeterol [Advair 250-50] 2 puff INH BID 09/12/18 [History] Polyethylene Glycol 3350 [MiraLAX] 1 dose PO DAILY PRN 09/12/18 [History] Potassium Chloride [Klor-Con M20] 20 meq PO DAILY 09/12/18 [History] Clindamycin Phosphate [Cleocin] 1 dose TOP BID 03/14/19 [History] Fluticasone Propionate [Flonase] 1 dose NASBOTH DAILY 03/14/19 [History] Ketoconazole [Nizoral 2% Shampoo] 1 dose TOP Q72H 03/14/19 [History] Acetaminophen/oxyCODONE [Percocet 325-5 MG] 1 - 2 tab PO Q4H PRN #60 tablet [Rx] Bisacodyl [Dulcolax] 5 mg PO DAILY PRN tablet 03/19/19 [Rx] Cyclobenzaprine [Flexeril] 10 mg PO BID PRN #20 tablet 03/19/19 [Rx] Docusate Sodium [Colace] 100 mg PO BID cap 03/19/19 [Rx] Rivaroxaban [Xarelto] 10 mg PO DAILY #14 tablet 03/19/19 [Rx] Sennosides [Senna] 8.6 mg PO BID PRN tablet 03/19/19 [Rx] Patient Handouts: Rivaroxaban oral tablets Referrals: Magaly Gonzalez PA-C [Physician Employee Communications Intern] - (1. Follow-up with Magaly Gonzalez PA-C on Tuesday, March 26, 2019 at 11:45am. 2. Follow-up with Magaly Gonzalez PA-C on Tuesday, April 02, 2019 at 11:45am. 3. Follow-up with Magaly Gonzalez PA-C on Tuesday, April 30, 2019 at 11:45am.) - Discharge Summary/Plan Comment DC Time >30 min.: No - Patient Data Vitals - Most Recent: Last Vital Signs Temp 97.6 F 03/19/19 08:00 Pulse 61 03/19/19 08:11 Resp 16 03/19/19 08:11 BP 123/73 03/19/19 08:11 Pulse Ox 94 L 03/19/19 09:13 Weight - Most Recent: 215 lb 11.2 oz I&O - Last 24 hours: Intake & Output 03/19/19 03/19/19 03/19/19 06:59 14:59 22:59 Intake Total 800 120 Output Total 400 Balance 400 120 Lab Results - Last 24 hrs: Laboratory Results - last 24 hr 03/19/19 03/19/19 Range/Units 05:07 05:07 WBC 6.29 (3.98-10.04) K/mm3 RBC 4.03 (3.98-5.22) M/mm3 Hgb 11.6 D (11.2-15.7) gm/L Hct 36.7 (34.1-44.9) % MCV 91.1 (79.4-94.8) fl MCH 28.8 (25.6-32.2) pg MCHC 31.6 L (32.2-35.5) g/dl RDW Std Deviation 51.6 H (36.4-46.3) fL Plt Count 171 L (182-369) K/mm3 MPV 11.6 (9.4-12.3) fl Sodium 139 (136-145) mEq/L Potassium 4.1 (3.5-5.1) mEq/L Chloride 104 (98-107) mEq/L Carbon Dioxide 29 (21-32) mEq/L Anion Gap 10.1 (5-15) BUN 19 H (7-18) mg/dL Creatinine 0.7 (0.55-1.02) mg/dL Est Cr Clr Drug Dosing 44.51 mL/min Estimated GFR (MDRD) > 60 (>60) mL/min BUN/Creatinine Ratio 27.1 H (14-18) Glucose 123 H (83-115) mg/dL Calcium 8.3 L (8.5-10.1) mg/dL Total Bilirubin 1.4 H (0.2-1.0) mg/dL AST 22 (15-37) U/L ALT 18 (14-59) U/L Alkaline Phosphatase 53 (46-116) U/L Total Protein 5.8 L (6.4-8.2) g/dl Albumin 2.6 L (3.4-5.0) g/dl Globulin 3.2 gm/dL Albumin/Globulin Ratio 0.8 L (1-2) Med Orders - Current: Current Medications Albuterol (Proventil Hfa) 0 gm INH Q4HR PRN PRN Reason: Shortness of Breath Last Admin: 03/19/19 09:09 Dose: 2 unit Artificial Tears (Refresh Liquigel 1%) 0 ml EYEBOTH BID [facility] Last Admin: 03/19/19 08:58 Dose: 1 drop Bisacodyl (Dulcolax) 5 mg PO DAILY PRN PRN Reason: Constipation Calcium Carbonate (Calcium Carbonate/Vitamin D 600 Mg-200 Unit) 1 tab PO DAILY [facility] Last Admin: 03/19/19 09:18 Dose: 1 tab Cholecalciferol (Vitamin D3) 5,000 unit PO DAILY [facility] Last Admin: 03/19/19 09:18 Dose: 5,000 unit Cyclobenzaprine HCl (Flexeril) 10 mg PO BID PRN PRN Reason: Spasms Docusate Sodium (Colace) 100 mg PO BID [facility] Last Admin: 03/19/19 09:19 Dose: 100 mg Famotidine (Pepcid) 20 mg PO Q12H [facility] Last Admin: 03/19/19 09:19 Dose: 20 mg Fluticasone Propionate (Flonase) 0 gm NASBOTH DAILY [facility] Last Admin: 03/19/19 09:19 Dose: 1 spr Magnesium Hydroxide (Milk Of Magnesia) 30 ml PO BID PRN PRN Reason: Constipation Morphine Sulfate (Morphine) 2 mg IVPUSH Q2H PRN PRN Reason: Breakthrough Pain Naloxone HCl (Narcan) 0.1 mg IVPUSH Q5M PRN PRN Reason: Oversedation Clindamycin Phosphate [Cleocin] Topical Pt's Own Med 0 dose TOP BID [facility] Last Admin: 03/19/19 08:56 Dose: Not Given Ondansetron HCl (Zofran) 4 mg IVPUSH Q6H PRN PRN Reason: Nausea/Vomiting Oxycodone/Acetaminophen (Percocet 325-5 Mg) 1 - 2 tab PO Q4H PRN PRN Reason: Pain Last Admin: 03/19/19 10:38 Dose: 2 tab Fluticasone/Salmeterol Pt's Own Medication 0 each INH BID [facility] Last Admin: 03/19/19 08:58 Dose: 2 each Polyethylene Glycol (Miralax) 17 gm PO DAILY [facility] Last Admin: 03/19/19 09:19 Dose: 17 gm Potassium Chloride (Klor-Con M20) 20 meq PO DAILY [facility] Last Admin: 03/19/19 09:18 Dose: 20 meq Rivaroxaban (Xarelto) 10 mg PO DAILY [facility] Last Admin: 03/19/19 09:18 Dose: 10 mg Senna (Senna) 8.6 mg PO BID PRN PRN Reason: Constipation Vit A/Vit C/Vit E/Selen/Cu/Zn/Lutei (Icaps Mv) 2 tab PO BID [facility] Last Admin: 03/19/19 09:18 Dose: 2 tab Discontinued Medications Bupivacaine HCl (Sensorcaine-Mpf 0.75%) Confirm Administered Dose 30 ml .ROUTE .STK-MED ONE Stop: 03/18/19 08:16 Bupivacaine HCl (Sensorcaine-Mpf 0.25%) Confirm Administered Dose 30 ml .ROUTE .STK-MED ONE Stop: 03/18/19 08:55 Last Admin: 03/18/19 11:03 Dose: 30 ml Cefazolin Sodium (Ancef) Confirm Administered Dose 2 gm .ROUTE .STK-MED ONE Stop: 03/18/19 08:13 Last Admin: 03/18/19 11:00 Dose: 2 gm Cefazolin Sodium (Ancef) Confirm Administered Dose 2 gm .ROUTE .STK-MED ONE Stop: 03/18/19 08:55 Morphine Sulfate 8 mg/Epinephrine HCl 0.3 mg/Cefuroxime Sodium 750 mg/Ketorolac Tromethamine 30 mg/Sodium Chloride 27.9 ml 0 mg .XX ONETIME ONE Stop: 03/18/19 10:01 Last Admin: 03/18/19 11:05 Dose: 788.3 mg Ephedrine Sulfate (Ephedrine In Ns) Confirm Administered Dose 25 mg .ROUTE .STK- MED ONE Stop: 03/18/19 09:42 Fentanyl (Sublimaze) Confirm Administered Dose 100 mcg .ROUTE .STK-MED ONE Stop: 03/18/19 08:12 Fentanyl (Sublimaze) 50 mcg IVPUSH Q5M PRN PRN Reason: Pain Stop: 03/18/19 23:00 Last Admin: 03/18/19 12:17 Dose: 50 mcg Glycopyrrolate () Confirm Administered Dose 1 mg .ROUTE .STK-MED ONE Stop: 03/18/19 09:42 Lactated Ringer's (Ringers, Lactated) 1,000 mls @ 125 mls/hr IV ASDIRECTED [facility] Stop: 03/18/19 23:00 Last Admin: 03/18/19 08:30 Dose: 125 mls/hr Cefazolin Sodium/Dextrose 2 gm (/ Premix) 50 mls @ 100 mls/hr IV Q8H [facility] Stop: 03/19/19 10:29 Last Admin: 03/19/19 09:18 Dose: 100 mls/hr Lidocaine HCl (Xylocaine-Mpf 1%) Confirm Administered Dose 0 mls @ as directed .ROUTE .STK-MED ONE Stop: 03/18/19 08:11 Lidocaine HCl (Xylocaine-Mpf 1%) Confirm Administered Dose 5 mls @ as directed .ROUTE .STK-MED ONE Stop: 03/18/19 08:15 Lactated Ringer's (Ringers, Lactated) Confirm Administered Dose 1,000 mls @ as directed .ROUTE .ST-MED ONE Stop: 03/18/19 09:53 Iodine (Iodine 2% Mild Tincture) Confirm Administered Dose 30 ml .ROUTE .STK- MED ONE Stop: 03/18/19 08:55 Last Admin: 03/18/19 10:58 Dose: 18 ml Ketorolac Tromethamine (Toradol) 15 mg IVPUSH Q6H PRN PRN Reason: Pain Last Admin: 03/19/19 06:15 Dose: 15 mg Lidocaine/Sodium Bicarbonate (Buffered Lidocaine 1% In Ns 8.4%) 0.25 ml IDERM ONETIME PRN PRN Reason: Prior to IV Start Stop: 03/18/19 18:00 Last Admin: 03/18/19 08:29 Dose: 0.25 ml Magnesium Hydroxide (Milk Of Magnesia) 30 ml PO ASDIRECTED [facility] Midazolam HCl (Versed 1 Mg/Ml) Confirm Administered Dose 2 mg .ROUTE .STK-MED ONE Stop: 03/18/19 08:12 Non-Formulary Medication (Ranitidine Hcl) 150 tab PO BID [facility] Ondansetron HCl (Zofran) 4 mg IVPUSH ONETIME PRN PRN Reason: Nausea/Vomiting Propofol (Diprivan 20 Ml) Confirm Administered Dose 400 mg .ROUTE .STK-MED ONE Stop: 03/18/19 08:12 Propofol (Diprivan 20 Ml) Confirm Administered Dose 200 mg .ROUTE .STK-MED ONE Stop: 03/18/19 10:50 Ropivacaine (Naropin 0.5%) Confirm Administered Dose 30 ml .ROUTE .STK-MED ONE Stop: 03/18/19 07:27 Sodium Chloride (Saline Flush) 10 ml FLUSH ASDIRECTED PRN PRN Reason: Keep Vein Open Stop: 03/18/19 18:00 Tranexamic Acid (Cyklokapron) Confirm Administered Dose 1,000 mg .ROUTE .STK- MED ONE Stop: 03/18/19 08:55 Last Admin: 03/18/19 11:13 Dose: 1,000 mg Vancomycin HCl (Vancomycin) Confirm Administered Dose 1 gm .ROUTE .STK-MED ONE Stop: 03/18/19 08:55 Last Admin: 03/18/19 11:10 Dose: 1 gm
--- NOTE | 2019-03-22 14:16 | OR ---
DATE OF OPERATION: 03/18/2019 SURGEON: Royal Torres MD OPERATION PERFORMED: Left total knee arthroplasty. PREOPERATIVE DIAGNOSIS: Left knee osteoarthrosis. POSTOPERATIVE DIAGNOSIS: Left knee osteoarthrosis. ANESTHESIA: Local MAC with spinal. ANESTHESIA PROVIDER: Ewelina Cohn CRNA [employer] OPERATOR: Magaly Gonzalez PA-C and Lisa Oliveira LPN. ESTIMATED BLOOD LOSS: 10 mL. COMPLICATIONS: None. CONDITION: Stable. IMPLANT: 1. [place] size 5 cemented PS femur. 2. [place] size 4 cemented [place] tibial baseplate. 3. [place] size 13 mm TS X3 polyethylene. 4. [place] size 32 x 10 mm asymmetric patella cemented. DESCRIPTION OF PROCEDURE: The patient was identified in the preop holding area. Proper site was marked and identified by the surgeon. The patient was brought back to the operating theater, where after adequate anesthesia, the patient had a nonsterile tourniquet applied to the left lower extremity and then was sterilely prepped and draped in the usual sterile fashion. OR time-out was performed. The patient received 2 g IV Ancef. The left lower extremity was then exsanguinated. Tourniquet was insufflated to 250 mmHg. A standard medial parapatellar arthrotomy incision was taken down. This was taken down through to the quadriceps tendon as well as the patellar tendon and medial parapatellar arthrotomy was created. The deep fibers of the MCL were raised and the anterior fat pad was resected. The patient was noted to have significant infrapatellar adhesions. There was noted to have significant patellar baja on radiographs as well. At this time, secondary to the patient's body habitus, it was just very difficult visualization and a difficult total knee throughout the entirety of the procedure. The patient was also noted to have a very large defect on the medial side of the tibial plateau as well with significant defect. At this time, attention was turned to the patella. Patella measured 22 and was resected to 13 for 32 x 10 mm patella. Drill holes were then drilled and found to be adequate. Drill hole was placed in the distal femur, and the distal femoral cutting guide was then placed. 8 mm resected off the distal femur. The 4-in-1 cutting block was then placed for a size 5 after the epicondylar access holes were drilled, and anterior and posterior chamfer cuts were then completed and found to be adequate. Box cut was then completed for a size 5. Attention was turned to the tibia. Posterior mediolateral retractors were placed. Again the patient's patellar tendon was in the way of almost the entire time. So, at this time, it was decided that I would do intramedullary guide for the tibial cut. Drill hole was placed in the old footprint of the ACL. The T-handle with cutting guide was then placed down the canal. The 2 mm was then measured off the portion of the defect on the medial tibial plateau, and the resection was carried out. It was very difficult resection. The patient's patellar tendon was in the way, and it was almost down to the level of her tibial tubercle, and it was a very large resection at this time. The patient had large posterior osteophytes and these were resected with a curved osteotome. The patient had a lot of osteophytes on the lateral side as well, and these were resected at this time. A size 4 tibial baseplate was found to have adequate coverage. At this time, trial implants were then placed with a size 5 femur and size 4 take baseplate and then a 13 mm poly. The trial poly was placed. The patient had adequate pentecostal of the joint line and had full flexion and extension, but did have some instability on the lateral side secondary to the large defect that she had previously. So, at this time, it was decided that we would do a TS polyethylene. Cement was mixed on the back table. All cut surfaces were irrigated with pulse lavage irrigation with Ancef and then completely dried. Gloves were then changed. The size 4 universal tibial baseplate was then stamped and drilled in proper rotation before it was irrigated and dried. Once the cement was ready, the size 4 tibial baseplate was impacted into place. Excess cement was removed. The size 5 femur was impacted in place and excess cement was removed. The size 4, 13 mm TS polyethylene insert was then placed and the PEG was placed in the polyethylene post. The patient's knee was brought into full extension. Excess cement again was removed and then the 32 x 10 mm patella was cemented in place. 1 L dilute Betadine solution was irrigated through the knee along with 3 L pulse lavage irrigation with Ancef. Periarticular injection was then completed. Topical tranexamic acid as well as vancomycin powder were placed. A #2 barbed suture was used for closure of the medial parapatellar arthrotomy, 2-0 Vicryl was used subcutaneously and the patient had an incisional wound VAC placed at this time, secondary to her body habitus. The patient was then sent to the PACU in stable condition. She tolerated the procedure well. I will follow up in 1 week's time. MMODAL /[id number]
== END 2019-03-19 13:00 | disposition home or self-care (01) | DRG 470 ==
LOC: JD.SDS 07:59 → JD.MS 08:00
PROVIDERS: ADMIT Orthopaedic Surgery; ATTEND Orthopaedic Surgery
PROC: 0SRD0J9 Replacement of Left Knee Joint with Synthetic Substitute, Cemented, Open Approach (ICD-10-PCS; principal; 2019-03-18)
DX: M17.12 Unilateral primary osteoarthritis, left knee (principal); L97.329 Non-pressure chronic ulcer of left ankle with unspecified severity; Z68.41 Body mass index [BMI] 40.0-44.9, adult; R00.1 Bradycardia, unspecified; I80.3 Phlebitis and thrombophlebitis of lower extremities, unspecified; K21.0 Gastro-esophageal reflux disease with esophagitis; I11.0 Hypertensive heart disease with heart failure; I50.9 Heart failure, unspecified; J45.909 Unspecified asthma, uncomplicated; G47.33 Obstructive sleep apnea (adult) (pediatric); K22.719 Barrett's esophagus with dysplasia, unspecified; E66.9 Obesity, unspecified; G25.81 Restless legs syndrome; K42.9 Umbilical hernia without obstruction or gangrene; H54.7 Unspecified visual loss; I45.10 Unspecified right bundle-branch block; H26.9 Unspecified cataract; R07.2 Precordial pain; Z99.81 Dependence on supplemental oxygen; Z85.3 Personal history of malignant neoplasm of breast; Z88.1 Allergy status to other antibiotic agents; Z85.42 Personal history of malignant neoplasm of other parts of uterus; Z91.09 Other allergy status, other than to drugs and biological substances; Z91.048 Other nonmedicinal substance allergy status; Z79.82 Long term (current) use of aspirin; Z79.899 Other long term (current) drug therapy; Z90.49 Acquired absence of other specified parts of digestive tract; Z85.828 Personal history of other malignant neoplasm of skin; Z90.710 Acquired absence of both cervix and uterus; Z90.11 Acquired absence of right breast and nipple; Z98.49 Cataract extraction status, unspecified eye
CPT/HCPCS: 01402; 36415; 64450; 73560-26-LT; 73560-LT; 80053; 85027; 85730; 87641; 93005; 94640; 94760; 97110-GP; 97116-GP; 97161-GP; 97165-GO; 97535-GO; A9270-GY; C1713; C1776; J0171; J0690; J0697; J1885; J2001; J2250; J2270; J2704; J2795; J3010; J3370; J3490; J7050; J7120

== ENCOUNTER 2020-02-14 08:38 | Emergency (ER) | payer MEDICARE, OTHER ==
[2020-02-14 09:00] VITALS: BP 137/79; PULSE 67
[2020-02-14] MEDS ORDERED: Sodium Chloride 0.9% 10 ML Syringe FLUSH PRN (09:31)
--- NOTE | 2020-02-14 09:33 | EDM.PDOC ---
ED HPI GENERAL MEDICAL PROBLEM - General Chief Complaint: Skin Complaint Stated Complaint: SKIN COMPLAINT - LEGS Time Seen by Provider: 02/14/20 08:47 Source of Information: Reports: Patient, RN Notes Reviewed - History of Present Illness INITIAL COMMENTS - FREE TEXT/NARRATIVE: 84 yr old female comes in with rash bilat lower legs. She states she first became aware of this yesterday, worse today. Mild itchiness. Skin other morales clear. No hives or uticaria. No fever, chills, cough, dyspnea, nausea or vomiting. Hx of prior cellulitis LLE. Does use some type of topical vaseline on her legs daily. No chest pain, cough, dsypnea. Hx of cellulitis in the past. She this does not feel like that. States she did take amoxicillin 3 days ago for a dental procedure, rash cam shortly after that. Bilateral Lower Ankle Pain Score (Numeric/FACES): 3 - Related Data Allergies Allergy/AdvReac Type Severity Reaction Status Date / Time bacitracin Allergy Itching Verified 02/14/20 09:00 [From Triple Antibiotic] bacitracin zinc Allergy Itching Verified 02/14/20 09:00 [From Triple Antibiotic] cat dander Allergy Respiratory Verified 02/14/20 09:00 Distress lanolin Allergy Itching Verified 02/14/20 09:00 neomycin sulfate Allergy Itching Verified 02/14/20 09:00 [From Triple Antibiotic] polymyxin B Allergy Itching Verified 02/14/20 09:00 [From Triple Antibiotic] polymyxin B sulfate Allergy Itching Verified 02/14/20 09:00 [From Triple Antibiotic] metals Allergy Rash Uncoded 03/14/19 13:42 Home Meds: Home Meds Albuterol Sulfate [Proair Hfa] 2 puff INH Q4HR PRN 09/18/15 [History] Antiox.mv No.10/Omeg3s/Lut/Kirti [I-Caps with Lutein-[place] 3 SFG] 1 cap PO BID 09/18/15 [History] Aspirin [Adult Low Dose Aspirin EC] 81 mg PO DAILY 09/18/15 [History] Calcium Carbonate/Vitamin D3 [Calcium 600 + Vit D 200] 1 tab PO DAILY 09/18/15 [History] Furosemide [Lasix] 40 mg PO BID 09/18/15 [History] Lisinopril 10 mg PO DAILY 09/18/15 [History] Magnesium Hydroxide [Milk of Magnesia] 30 ml PO DAILY 09/18/15 [History] Propylene Glycol/Peg 400 [Systane 0.3-0.4% Eye Drops] 1 drop EYEBOTH BID 09/18/15 [History] Ranitidine HCl 150 tab PO BID 09/18/15 [History] estradioL [Estrace 0.01% Vaginal Crm] 1 gram VAG WEEKLY 09/18/15 [History] Cholecalciferol (Vitamin D3) [Vitamin D3] 5,000 unit PO DAILY 03/15/17 [History] Fluticasone/Salmeterol [Advair 250-50] 2 puff INH BID 09/12/18 [History] Potassium Chloride [Klor-Con M20] 20 meq PO DAILY 09/12/18 [History] polyethylene glycoL 3350 [MiraLAX] 1 dose PO DAILY PRN 09/12/18 [History] Clindamycin Phosphate [Cleocin] 1 dose TOP BID 03/14/19 [History] Fluticasone Propionate [Flonase] 1 dose NASBOTH DAILY 03/14/19 [History] Ketoconazole [Nizoral 2% Shampoo] 1 dose TOP Q72H 03/14/19 [History] Acetaminophen/oxyCODONE [Percocet 325-5 MG] 1 - 2 tab PO Q4H PRN #60 tablet 03/19/19 [Rx] Cyclobenzaprine [Flexeril] 10 mg PO BID PRN #20 tablet 03/19/19 [Rx] Docusate Sodium [Colace] 100 mg PO BID cap 03/19/19 [Rx] Rivaroxaban [Xarelto] 10 mg PO DAILY #14 tablet 03/19/19 [Rx] Sennosides [Senna] 8.6 mg PO BID PRN tablet 03/19/19 [Rx] bisacodyL [Dulcolax] 5 mg PO DAILY PRN tablet 03/19/19 [Rx] Doxycycline [Vibra-Tabs] 100 mg PO Q12HR #14 tab 02/14/20 [Rx] Famotidine [Pepcid] 20 mg PO DAILY 02/14/20 [History] cephALEXin [Cephalexin] 500 mg PO TID #20 capsule 02/14/20 [Rx] Past Medical History HEENT History: Reports: Cataract, Impaired Vision Other HEENT History: wears glasses Cardiovascular History: Reports: Heart Failure, Hypertension, Other (See Below) Other Cardiovascular History: precordial pain, negative stress test in 02/2019 Respiratory History: Reports: Asthma, Sleep Apnea Gastrointestinal History: Reports: Colon Polyp, GERD, Other (See Below) Other Gastrointestinal History: lara's esophogus, umbilical hernia, esophagitis Genitourinary History: Reports: Urinary Incontinence [employer] History: Reports: None Musculoskeletal History: Reports: Other (See Below) Other Musculoskeletal History: crushed R ankle with hardware, broken L arm, restless leg syndrome Neurological History: Reports: None, Other (See Below) Other Neuro History: restless leg syndrome Psychiatric History: Reports: None Endocrine/Metabolic History: Reports: Obesity/BMI 30+ Hematologic History: Reports: None, B12 Deficiency Immunologic History: Reports: None Oncologic (Cancer) History: Reports: Basal Cell Carcinoma, Breast, Uterine Dermatologic History: Reports: Other (See Below) Other Dermatologic History: L leg plebitis, L ankle ulcer, skin lesion, leg phlebitis - Past Surgical History HEENT Surgical History: Reports: Cataract Surgery, Tonsillectomy Cardiovascular Surgical History: Reports: None Respiratory Surgical History: Reports: None GI Surgical History: Reports: Appendectomy, Cholecystectomy, Colonoscopy, EGD, Hernia Repair/Other Female Surgical History: Reports: Hysterectomy, Mastectomy Other Female Surgeries/Procedures: Right breast mastecomy Endocrine Surgical History: Reports: None Neurological Surgical History: Reports: None Musculoskeletal Surgical History: Reports: Carpal Tunnel, Other (See Below) Other Musculoskeletal Surgeries/Procedures:: carpal tunnel surgery Oncologic Surgical History: Reports: Mastectomy - History Comment History Comment: has some redness back of left lower leg. Dr. Torres is aware and wishes to proceed. Social & Family History - Tobacco Use Smoking Status *Q: Never Smoker - Caffeine Use Caffeine Use: Reports: Coffee, Other Caffeine Use Comment: Drinks a cup a day every now and then patient report, Patient reports she has tonic water daily for cramps - Recreational Drug Use Recreational Drug Use: No ED ROS GENERAL - Review of Systems Review Of Systems: See Below Constitutional: Denies: Fever, Chills, Diaphoresis HEENT: Reports: No Symptoms Respiratory: Denies: Shortness of Breath Cardiovascular: Denies: Chest Pain GI/Abdominal: Denies: Abdominal Pain, Nausea, Vomiting Musculoskeletal: Denies: Shoulder Pain, Arm Pain, Back Pain Skin: Reports: Rash, Erythema (bilat lower legs) Neurological: Denies: Dizziness, Numbness, Tingling, Weakness ED EXAM, SKIN/RASH Exam: See Below General Appearance: Alert, No Apparent Distress Head: Atraumatic. No: Facial Swelling Neck: Supple, Full Range of Motion Respiratory/Chest: No Respiratory Distress, Lungs Clear, Normal Breath Sounds Cardiovascular: Regular Rate, Rhythm GI/Abdominal: Soft, Non-Tender Extremities: Redness (bilat lower legs). No: Pedal Edema, Leg Pain, Increased Warmth Neurological: No Motor/Sensory Deficits Skin: Warm, Dry Course - Vital Signs Last Recorded V/S: Last Vital Signs Temp 98.5 F 02/14/20 08:58 Pulse 67 02/14/20 08:58 Resp 16 02/14/20 08:58 BP 137/79 02/14/20 08:58 Pulse Ox 94 L 02/14/20 08:58 - Orders/Labs/Meds Orders: Active Orders 24 hr Category Date Time Status Peripheral IV Care [RC] . DIRECTED Care 02/14/20 09:32 Active Peripheral IV Insertion Adult [OM.PC] Stat Oth 02/14/20 09:32 Ordered Labs: Laboratory Tests 02/14/20 02/14/20 02/14/20 Range/Units 09:58 09:58 09:58 WBC 5.13 (3.98-10.04) K/mm3 RBC 4.21 (3.98-5.22) M/mm3 Hgb 12.1 (11.2-15.7) gm/dl Hct 39.3 (34.1-44.9) % MCV 93.3 (79.4-94.8) fl MCH 28.7 (25.6-32.2) pg MCHC 30.8 L (32.2-35.5) g/dl RDW Std Deviation 54.2 H (36.4-46.3) fL Plt Count 182 (182-369) K/mm3 MPV 10.7 (9.4-12.3) fl Neutrophils % (Manual) 76 H (40-60) % Band Neutrophils % 1 (0-10) % Lymphocytes % (Manual) 9 L (20-40) % Atypical Lymphs % 0 % Monocytes % (Manual) 10 (2-10) % Eosinophils % (Manual) 4 (0.7-5.8) % Basophils % (Manual) 0 L (0.1-1.2) Platelet Estimate Adequate Plt Morphology Comment Poikilocytosis 1+ slight Anisocytosis 1+ slight RBC Morph Comment Not Reportable Sodium 146 H (136-145) mEq/L Potassium 4.5 (3.5-5.1) mEq/L Chloride 109 H (98-107) mEq/L Carbon Dioxide 30 (21-32) mEq/L Anion Gap 11.5 (5-15) BUN 18 (7-18) mg/dL Creatinine 0.9 (0.55-1.02) mg/dL Est Cr Clr Drug Dosing 34.02 mL/min Estimated GFR (MDRD) 60 (>60) mL/min BUN/Creatinine Ratio 20.0 H (14-18) Glucose 104 (83-115) mg/dL Calcium 8.3 L (8.5-10.1) mg/dL Total Bilirubin 1.3 H (0.2-1.0) mg/dL AST 14 L (15-37) U/L ALT 12 L (14-59) U/L Alkaline Phosphatase 64 (46-116) U/L C-Reactive Protein 2.3 H* (<1.0) mg/dL Total Protein 6.3 L (6.4-8.2) g/dl Albumin 3.0 L (3.4-5.0) g/dl Globulin 3.3 gm/dL Albumin/Globulin Ratio 0.9 L (1-2) Meds: Medications Discontinued Medications Generic Name Dose Route Start Last Admin Trade Name Freq PRN Reason Stop Dose Admin Doxycycline Hyclate 200 mg 02/14/20 12:05 02/14/20 12:12 Vibramycin PO 02/14/20 12:06 200 mg ONETIME ONE Administration Ceftriaxone Sodium 1 gm/ 100 mls @ 200 mls/hr 02/14/20 12:04 02/14/20 12:12 Sodium Chloride IV 02/14/20 12:33 200 mls/hr ONETIME ONE Administration Sodium Chloride 10 ml 02/14/20 09:31 02/14/20 12:09 Saline Flush FLUSH 10 ml ASDIRECTED PRN Administration Keep Vein Open - Re-Assessments/Exams Free Text/Narrative Re-Assessment/Exam: 02/14/20 15:54 Pt seems to have an inflamatory rash bilat lower legs, goes to shoe and sock line and than stops, she uses some time of a vaseline lotion on her legs but states she uses that every day for a long time. Has been out gardening a lot some some sun exposure with that. As noted she did take the amoxicillin a day or so before the rash started. 02/14/20 15:56 WBC 5,100, afebrile, CRP 2.3. US of legs neg. for DVT. If this cellulitis she is not ill with that. Have give a dose of rocephin IV precautionary, will further treat with doxycycline and cephalexin for 1 week. Sunlight exposure precautions given. Discharge instr. as documented. Departure - Departure Time of Disposition: 13:05 Disposition: Home, Self-Care 01 Condition: Fair Clinical Impression: Skin rash - Discharge Information Prescriptions: cephALEXin [Cephalexin] 500 mg PO TID #20 capsule Doxycycline [Vibra-Tabs] 100 mg PO Q12HR #14 tab Instructions: Rash, Adult, [id number] Referrals: James Stein MD [Primary Care Provider] - Forms: ED Department Discharge Additional Instructions: Cephalexin 500 mg 3 times daily for 1 week or until gone, doxycycline 500 mg twice daily for 1 week or until gone. Keep skin protected from sun when taking doxycyline. These prescriptions have been sent to [facility]. Return to ED if you start running high fever or otherwise start feeling ill or rash, redness and swelling of your legs dramatically worsens. Follow up with your regular medical provider in about 4 to 5 days for recheck, call for appointment. For now try not to put and creams, lotions or ointment on your lower legs as that may be irritating to your skin at this time. Sepsis Event Note (ED) - Evaluation Sepsis Screening Result: No Definite Risk - Focused Exam Vital Signs: Vital Signs Temp Pulse Resp BP Pulse Ox 02/14/20 08:58 98.5 F 67 16 137/79 94 L - My Orders Last 24 Hours: My Active Orders 02/14/20 09:32 Peripheral IV Care [RC] . DIRECTED Peripheral IV Insertion Adult [OM.PC] Stat - Assessment/Plan Last 24 Hours: My Active Orders 02/14/20 09:32 Peripheral IV Care [RC] . DIRECTED Peripheral IV Insertion Adult [OM.PC] Stat
[2020-02-14] MEDS ORDERED: cefTRIAXone 1 GM in Sodium Chloride 0.9% 100 ML IV ONE (12:04)
[2020-02-14] MEDS ORDERED: Doxycycline 100 MG Cap PO ONE (12:05)
--- NOTE | 2020-02-14 13:46 | US ---
Bilateral lower extremity deep venous ultrasound: Duplex and color Doppler evaluation was obtained of the right left common femoral, superficial femoral, popliteal, posterior tibial and peroneal veins. Findings: Phasic flow, augmentation and compression is seen. Impression: 1. No evidence of deep venous thrombosis within the right or left lower extremities. Diagnostic code #1 This report was dictated in MDT
== END 2020-02-14 13:20 | disposition home or self-care (01) ==
LOC: JD.ED 08:38
DX: R21 Rash and other nonspecific skin eruption (principal); I11.0 Hypertensive heart disease with heart failure; I50.9 Heart failure, unspecified; J45.909 Unspecified asthma, uncomplicated; K21.9 Gastro-esophageal reflux disease without esophagitis; E66.9 Obesity, unspecified; Z88.1 Allergy status to other antibiotic agents; Z91.048 Other nonmedicinal substance allergy status; Z91.09 Other allergy status, other than to drugs and biological substances; Z79.82 Long term (current) use of aspirin; Z79.899 Other long term (current) drug therapy
CPT/HCPCS: 36415; 80053; 85007; 85027; 86140; 93970; 96365; 99283; A9270; J0696; J7050

== ENCOUNTER 2022-02-02 06:48 | Emergency (ER) | payer MEDICARE, OTHER ==
[2022-02-02] MEDS ORDERED: Sodium Chloride 0.9% 10 ML Syringe FLUSH PRN (07:19)
[2022-02-02] MEDS ORDERED: Aspirin 81 MG Tab.Chew PO ONE (07:20)
[2022-02-02 09:56] VITALS: BP 126/61; PULSE 54
== END 2022-02-02 09:57 | disposition home or self-care (01) ==
LOC: JD.ED 06:48
DX: R07.89 Other chest pain (principal); K44.9 Diaphragmatic hernia without obstruction or gangrene; K21.9 Gastro-esophageal reflux disease without esophagitis; I11.0 Hypertensive heart disease with heart failure; I50.9 Heart failure, unspecified; E66.9 Obesity, unspecified; Z68.30 Body mass index [BMI] 30.0-30.9, adult; Z88.1 Allergy status to other antibiotic agents; Z91.048 Other nonmedicinal substance allergy status; Z91.09 Other allergy status, other than to drugs and biological substances; Z79.82 Long term (current) use of aspirin; Z79.899 Other long term (current) drug therapy
CPT/HCPCS: 36415; 71045; 80053; 82553; 83735; 83880; 84484; 85025; 85610; 85730; 93005; 99285; A9270; J3490

== ENCOUNTER 2023-02-25 13:08 | Emergency (ER) | payer MEDICARE, OTHER ==
[2023-02-25] MEDS ORDERED: Sodium Chloride 0.9% 10 ML Syringe FLUSH PRN (13:23)
[2023-02-25 13:27] LABS: BASE EXCESS ARTERIAL -1.5 (-2-2.0); BICARBONATE,ARTERIAL 30.6 meq/L (22.0-26.0); O2 SATURATION ARTERIAL 99.6 % (96.0-97.0); PCO2 ARTERIAL 94.4 mmHg (35.0-45.0)
[2023-02-25] MEDS ORDERED: Naloxone 0.4 MG/ML SDV IVPUSH ONE (13:36)
[2023-02-25] MEDS: Naloxone 0.4 MG/ML SDV ONE ×2 (13:37→13:38)
[2023-02-25 13:45] LABS: BASOPHILS ABSOLUTE AUTO 0.02 K/mm3 (0.01-0.08); BASOPHILS PERCENT AUTO 0.2 % (0.1-1.2); EOSINOPHILS PERCENT AUTO 0 (0.7-5.8); HEMATOCRIT 46.9 % (34.1-44.9); IMMATURE GRAN ABSOLUTE AUTO 0.03 K/mm3 (0.00-0.10); IMMATURE GRAN PERCENT AUTO 0.3 % (<=1.0); LYMPHOCYTES ABSOLUTE AUTO 0.47 K/mm3 (1.18-3.74); LYMPHOCYTES PERCENT AUTO 4.9 % (19.3-51.7); MEAN CORPUSCULAR HEMOGLOBIN 29.1 pg (25.6-32.2); MEAN CORPUSCULAR HGB CONC 29.9 g/dl (32.2-35.5); MONOCYTES ABSOLUTE AUTO 0.69 K/mm3 (0.24-0.36); MONOCYTES PERCENT AUTO 7.2 % (4.7-12.5); NEUTROPHILS ABSOLUTE AUTO 8.33 K/mm3 (1.56-6.13); NEUTROPHILS PERCENT AUTO 87.4 % (34.0-71.1); PLATELET COUNT,PLT 260 K/mm3 (182-369); RED BLOOD CELL COUNT 4.81 M/mm3 (3.98-5.22); WHITE BLOOD CELL COUNT,WBC 9.54 K/mm3 (3.98-10.04)
[2023-02-25 13:47] LABS: MEAN CORPUSCULAR VOLUME 97.5 fl (79.4-94.8)
[2023-02-25 13:48] LABS: APPEARANCE,URINE CLOUDY (Clear); BILIRUBIN,URINE 1+ (Negative); COLOR,URINE YELLOW (Yellow); GLUCOSE,URINE NEGATIVE (Negative); KETONES,URINE NEGATIVE (Negative); LEUKOCYTE ESTERASE,URINE 2+ (Negative); NITRITE,URINE NEGATIVE (Negative); OCCULT BLOOD,URINE 2+ (Negative); PH,URINE 5.5 (5.0-8.0); PROTEIN,URINE 3+ (Negative); UROBILINOGEN,URINE 0.2 (0.2-1.0)
[2023-02-25 13:55] LABS: AMORPHOUS SEDIMENT,URINE FEW /hpf (NOT SEEN); BACTERIA,URINE MODERATE /hpf (FEW); MUCUS,URINE NOT SEEN /hpf (FEW); SQUAMOUS EPITHELIAL CELLS,UR 0-5 /hpf (0-5); WBC,URINE >100 /hpf (0-5)
[2023-02-25 14:05] LABS: INR 1.03
[2023-02-25 14:18] LABS: A/G RATIO 0.9 (1-2); ALANINE AMINOTRANSFERASE,ALT 46 U/L (14-59); ALBUMIN 3.4 g/dl (3.4-5.0); ALKALINE PHOSPHATASE 106 U/L (46-116); ANION GAP 8.9 (5-15); ASPARTATE AMNIOTRANSFERASE,AST 25 U/L (15-37); BILIRUBIN TOTAL 0.7 mg/dL (0.2-1.0); BLOOD UREA NITROGEN,BUN 39 mg/dL (7-18); CALCIUM 9.3 mg/dL (8.5-10.1); CARBON DIOXIDE,CO2 33 mEq/L (21-32); CHLORIDE,CL 105 mEq/L (98-107); CREATININE 1.5 mg/dL (0.55-1.02); ESTIMATED GFR 34 mL/min (>60); GLUCOSE RANDOM 144 mg/dL (70-99); MAGNESIUM 2.2 mg/dL (1.8-2.4); POTASSIUM,K 4.9 mEq/L (3.5-5.1); PROTEIN TOTAL,TP 7.4 g/dl (6.4-8.2); SODIUM,NA 142 mEq/L (136-145); TSH 2.121 uIU/mL (0.358-3.74)
[2023-02-25 14:19] LABS: TROPONIN I HIGH SENSITIVITY 92 pg/mL (<=51)
[2023-02-25 15:59] LABS: CORONAVIRUS COVID-19 NAA NEGATIVE (NEGATIVE); INFLUENZA A NAA NEGATIVE (NEGATIVE); RESPIRATORY SYNCYTIAL VIR NAA NEGATIVE (NEGATIVE)
[2023-02-25 16:03] LABS: PCO2 ARTERIAL 60.9 mmHg (35.0-45.0)
[2023-02-25 16:04] LABS: BASE EXCESS ARTERIAL 1.9 (-2-2.0); BICARBONATE,ARTERIAL 29.2 meq/L (22.0-26.0); O2 SATURATION ARTERIAL 95.3 % (96.0-97.0)
[2023-02-25] MEDS ORDERED: Furosemide 40 MG/4 ML VIAL IVPUSH ONE ×2 (16:06→18:40)
[2023-02-25] MEDS ORDERED: cefTRIAXone 1 GM in Sodium Chloride 0.9% 100 ML IV ONE (16:15)
[2023-02-25 19:10] LABS: AMPHETAMINES SCREEN, URINE NEGATIVE (CUTOFF=500); BARBITURATE SCREEN,URINE NEGATIVE (CUTOFF=200); BENZODIAZEPINES SCREEN,URINE NEGATIVE (CUTOFF=150); BUPRENORPHINE SCREEN,URINE NEGATIVE (CUTOFF=10); METHADONE SCREEN, URINE NEGATIVE (CUTOFF=200); METHAMPHETAMINES SCREEN, URINE NEGATIVE (CUTOFF=500); OXYCODONE SCREEN,URINE NEGATIVE (CUT0FF=100); PROPOXYPHENE SCREEN,URINE NEGATIVE (CUTOFF=300); THC SCREEN,URINE 20 NG/ML NEGATIVE (CUTOFF=50)
[2023-02-25 20:40] VITALS: BP 112/84; PULSE 53
== END 2023-02-25 19:55 | disposition other institution (70) ==
LOC: JD.ED 13:08
DX: I11.0 Hypertensive heart disease with heart failure (principal); I50.9 Heart failure, unspecified; R06.89 Other abnormalities of breathing; J45.909 Unspecified asthma, uncomplicated; K21.9 Gastro-esophageal reflux disease without esophagitis; E66.9 Obesity, unspecified; Z68.30 Body mass index [BMI] 30.0-30.9, adult; Z86.16 Personal history of COVID-19; Z20.822 Contact with and (suspected) exposure to COVID-19; Z79.899 Other long term (current) drug therapy; Z79.01 Long term (current) use of anticoagulants
CPT/HCPCS: 0241U; 36415; 36600; 51702; 70450; 71045; 80053; 80306; 81001; 82803; 83735; 83880; 84443; 84484; 85025; 85610; 93005; 96365; 96375; 96376; 99285; J0696; J1940; J2310; J3490; 93010; 99284

== ENCOUNTER 2025-01-13 08:47 | Inpatient (IN) | payer MEDICARE ==
[2025-01-13] MEDS: Sodium Chloride 0.9% 10 ML Syringe FLUSH PRN ×2 (08:55→12:26)
[2025-01-13 09:25] LABS: BASE EXCESS VENOUS 15.5 (-4.0-2.0); BICARBONATE,VENOUS 44.4 meq/L (22-26); O2 SATURATION VENOUS 39.6; PH,VENOUS 7.38 (7.30-7.40)
[2025-01-13 09:27] LABS: BASOPHILS PERCENT AUTO 0.6 % (0.0-1.0); EOSINOPHILS PERCENT AUTO 0.2 % (0.0-6.0); HEMATOCRIT 42.5 % (37.0-47.0); IMMATURE GRAN ABSOLUTE AUTO 0.02 K/mm3 (0.00-0.05); IMMATURE GRAN PERCENT AUTO 0.3 % (0.0-0.4); LYMPHOCYTES ABSOLUTE AUTO 0.6 K/mm3 (1.0-4.8); LYMPHOCYTES PERCENT AUTO 9.3 % (24.0-44.0); MEAN CORPUSCULAR HEMOGLOBIN 30.1 pg (28.0-32.0); MEAN CORPUSCULAR HGB CONC 30.6 g/dl (32.0-36.0); MEAN CORPUSCULAR VOLUME 98.4 fl (83.0-99.0); MEAN PLATELET VOLUME 10.8 fl (9.4-12.3); MONOCYTES ABSOLUTE AUTO 0.5 K/mm3 (0.0-0.8); MONOCYTES PERCENT AUTO 7.1 % (0.0-8.0); NEUTROPHILS ABSOLUTE AUTO 5.3 K/mm3 (1.8-7.7); NEUTROPHILS PERCENT AUTO 82.5 % (41.0-71.0); PLATELET COUNT,PLT 185 K/mm3 (150-400); RED BLOOD CELL COUNT 4.32 M/mm3 (4.10-5.30); WHITE BLOOD CELL COUNT,WBC 6.47 K/mm3 (3.9-11.3)
[2025-01-13 09:50] LABS: LACTIC ACID 0.8 mmol/L (0.4-2.0)
[2025-01-13] MEDS: Albuterol/Ipratropium 3.0-0.5 MG/3 ML Neb Soln NEB ONE (09:50)
[2025-01-13 09:55] LABS: A/G RATIO 0.9 (1-2); ALBUMIN 3.1 g/dl (3.4-5.0); ANION GAP 4.9 (5-15); BILIRUBIN TOTAL 1.2 mg/dL (0.2-1.0); BUN/CREATININE RATIO 17.3 (14-18); CALCIUM 8.7 mg/dL (8.5-10.1); CREATININE 1.5 mg/dL (0.55-1.02); EST CRCL DRUG DOSING (CG) 18.62 mL/min; MAGNESIUM 2.4 mg/dL (1.8-2.4); POTASSIUM,K 4.9 mEq/L (3.5-5.1); PROTEIN TOTAL,TP 6.5 g/dl (6.4-8.2)
[2025-01-13] MEDS: Furosemide 40 MG/4 ML VIAL IVPUSH ONE ×2 (11:55→15:06)
[2025-01-13] MEDS: Iopamidol 755 Mg/ML 100 ML Bottle IVPUSH ONE (12:26)
[2025-01-13] MEDS: Sodium Chloride 0.9% 100 ML IV SCH (12:26)
[2025-01-13] MEDS ORDERED: Docusate Sodium 100 MG Cap PO PRN (13:54)
[2025-01-13] MEDS ORDERED: Ondansetron 4 MG/2 ML SDV IV PRN (13:54)
[2025-01-13] MEDS ORDERED: Acetaminophen 325 MG Tab PO PRN (13:54)
[2025-01-13] MEDS: Heparin Sodium 5,000 Units/ML Vial SUBCUT SCH (15:13)
[2025-01-13] MEDS: Sodium Chloride 0.9% 250 ML IV ONE ×3 (15:13→23:02)
[2025-01-13 17:18] LABS: TSH 1.693 uIU/mL (0.358-3.74)
[2025-01-13 18:23] LABS: APPEARANCE,URINE CLEAR (Clear); BILIRUBIN,URINE NEGATIVE (Negative); COLOR,URINE YELLOW (Yellow); GLUCOSE,URINE NEGATIVE (Negative); KETONES,URINE NEGATIVE (Negative); LEUKOCYTE ESTERASE,URINE 2+ (Negative); NITRITE,URINE NEGATIVE (Negative); OCCULT BLOOD,URINE TRACE-LYSED (Negative); PROTEIN,URINE NEGATIVE (Negative); UROBILINOGEN,URINE 0.2 (0.2-1.0)
[2025-01-13 18:39] LABS: BACTERIA,URINE MANY /hpf (FEW); EPITHELIAL CELLS,URINE 0-5 /hpf (0-5); MUCUS,URINE FEW /hpf (FEW); RBC,URINE 0-5 /hpf (0-5)
[2025-01-13] MEDS ORDERED: Atropine 0.1 MG/ML 10 ML Syringe IVPUSH PRN ×2 (19:48→20:00)
[2025-01-13] MEDS: Formoterol/Mometasone 200-5 MCG 8.8 GM Inhaler INH SCH (20:07)
[2025-01-13] MEDS ORDERED: Non-Formulary Medication 1 Each (Fluticasone Propion/Salmeterol [Advair Hfa 230-21 Mcg Inh PO SCH (21:00)
[2025-01-13] MEDS: traZODone 50 MG Tab PO SCH (21:16)
[2025-01-14] MEDS: DOPamine/Dextrose 5%-Water 400 MG/250 ML BAG IV SCH (00:16)
[2025-01-14 04:26] LABS: BASOPHILS ABSOLUTE AUTO 0.1 K/mm3 (0.0-0.2); BASOPHILS PERCENT AUTO 0.4 % (0.0-1.0); EOSINOPHILS PERCENT AUTO 0.3 % (0.0-6.0); HEMATOCRIT 46.1 % (37.0-47.0); HEMOGLOBIN 14.5 gm/dl (12.0-16.0); IMMATURE GRAN ABSOLUTE AUTO 0.02 K/mm3 (0.00-0.05); IMMATURE GRAN PERCENT AUTO 0.2 % (0.0-0.4); LYMPHOCYTES ABSOLUTE AUTO 0.8 K/mm3 (1.0-4.8); LYMPHOCYTES PERCENT AUTO 6.6 % (24.0-44.0); MEAN CORPUSCULAR HEMOGLOBIN 30.1 pg (28.0-32.0); MEAN CORPUSCULAR HGB CONC 31.5 g/dl (32.0-36.0); MEAN CORPUSCULAR VOLUME 95.6 fl (83.0-99.0); MEAN PLATELET VOLUME 11.3 fl (9.4-12.3); MONOCYTES ABSOLUTE AUTO 1.1 K/mm3 (0.0-0.8); MONOCYTES PERCENT AUTO 9.3 % (0.0-8.0); NEUTROPHILS ABSOLUTE AUTO 9.5 K/mm3 (1.8-7.7); NEUTROPHILS PERCENT AUTO 83.2 % (41.0-71.0); PLATELET COUNT,PLT 197 K/mm3 (150-400); RED BLOOD CELL COUNT 4.82 M/mm3 (4.10-5.30); WHITE BLOOD CELL COUNT,WBC 11.45 K/mm3 (3.9-11.3)
[2025-01-14 05:12] LABS: A/G RATIO 0.9 (1-2); ALBUMIN 3.3 g/dl (3.4-5.0); ANION GAP 7.5 (5-15); BILIRUBIN TOTAL 2.1 mg/dL (0.2-1.0); BUN/CREATININE RATIO 17.9 (14-18); CALCIUM 9.5 mg/dL (8.5-10.1); CREATININE 1.4 mg/dL (0.55-1.02); EST CRCL DRUG DOSING (CG) 19.95 mL/min; MAGNESIUM 2.6 mg/dL (1.8-2.4); POTASSIUM,K 4.5 mEq/L (3.5-5.1); PROTEIN TOTAL,TP 7.1 g/dl (6.4-8.2)
[2025-01-14] MEDS ORDERED: Sodium Chloride 0.9% 1,000 ML IV SCH (05:15)
[2025-01-14] MEDS ORDERED: Furosemide 40 MG/4 ML VIAL IVPUSH SCH (06:00)
[2025-01-14] MEDS: Pantoprazole 40 MG Tab.CR PO SCH (06:17)
[2025-01-14] MEDS: Albuterol/Ipratropium 3.0-0.5 MG/3 ML Neb Soln NEB PRN (08:51)
[2025-01-14 11:48] VITALS: BP 97/62
[2025-01-14 11:49] VITALS: PULSE 70
== END 2025-01-14 11:50 | DRG 189 ==
LOC: JD.ED 08:47 → JD.MS 13:52 → JD.ICU 15:41
PROVIDERS: ADMIT Family Medicine; ATTEND Family Medicine
PROC: 5A0935A Assistance with Respiratory Ventilation, Less than 24 Consecutive Hours, High Flow/Velocity Cannula (ICD-10-PCS; principal; 2025-01-13)
DX: J96.00 Acute respiratory failure, unspecified whether with hypoxia or hypercapnia (principal); J96.01 Acute respiratory failure with hypoxia; I50.33 Acute on chronic diastolic (congestive) heart failure; J45.909 Unspecified asthma, uncomplicated; E66.9 Obesity, unspecified; E66.2 Morbid (severe) obesity with alveolar hypoventilation; N17.9 Acute kidney failure, unspecified; Z68.42 Body mass index [BMI] 45.0-49.9, adult; J96.02 Acute respiratory failure with hypercapnia; Z66 Do not resuscitate; I11.0 Hypertensive heart disease with heart failure; I50.9 Heart failure, unspecified; J44.9 Chronic obstructive pulmonary disease, unspecified; K21.9 Gastro-esophageal reflux disease without esophagitis; H54.7 Unspecified visual loss; G25.81 Restless legs syndrome; E53.8 Deficiency of other specified B group vitamins; I27.20 Pulmonary hypertension, unspecified; J45.50 Severe persistent asthma, uncomplicated; K22.719 Barrett's esophagus with dysplasia, unspecified; R00.1 Bradycardia, unspecified; K44.9 Diaphragmatic hernia without obstruction or gangrene; M15.0 Primary generalized (osteo)arthritis; J43.2 Centrilobular emphysema; I95.9 Hypotension, unspecified; Z98.49 Cataract extraction status, unspecified eye; Z86.16 Personal history of COVID-19; Z88.8 Allergy status to other drugs, medicaments and biological substances; Z90.49 Acquired absence of other specified parts of digestive tract; Z90.710 Acquired absence of both cervix and uterus; Z85.3 Personal history of malignant neoplasm of breast; Z85.42 Personal history of malignant neoplasm of other parts of uterus; Z90.10 Acquired absence of unspecified breast and nipple; Z98.890 Other specified postprocedural states; Z79.899 Other long term (current) drug therapy
CPT/HCPCS: 36415; 71045; 71045-26; 71275; 71275-26; 80053; 81001; 82803; 82947; 83605; 83735; 83880; 84443; 84484; 85025; 85379; 87086; 93005; 93010; 93306; 94640; 94660; 94762; 96374; 99285; 99285-25; A9270-GY; C1758; J1265; J1644; J1938; J7030; Q9967